=== PATIENT | male | born 1940 | race Caucasian/White ===

== ENCOUNTER 2021-05-12 23:32 | Inpatient (IN) | payer OTHER, MEDICARE ==
[2021-05-13 00:06] VITALS: BMI 22.3
[2021-05-13] MEDS ORDERED: SODIUM CHLORIDE 0.9% 500 ML INFUS.BAG IV ONE (01:01)
[2021-05-13 03:31] LABS: BASO % 0.9 % (0-2.0); EOS % 2.4 % (0-4.5); HEMATOCRIT 34.2 % (35.4-49); HEMOGLOBIN 11.2 GM/dL (11.7-16.9); LYMPH % 19.9 % (8-40); MCH 30.3 pg (25.7-33.7); MCHC 32.7 g/dl (32.0-35.9); MEAN CELL VOLUME 92.7 fl (80-96); MEAN PLT VOLUME 8.7 fl (7.5-11.1); NEUT % 62.8 % (42.8-82.8); PLATELET COUNT 178 10^3/uL (134-434); RBC 3.69 M/mm3 (4.00-5.60); WHITE BLOOD COUNT 6.4 K/mm3 (4.0-10.0)
[2021-05-13 03:43] LABS: INR 1.75 (0.83-1.09); PROTHROMBIN TIME (PATIENT) 21.2 SEC (9.7-13.0)
[2021-05-13 03:45] LABS: ACTIVATED PTT 32.9 SECONDS (25.2-36.5)
[2021-05-13 03:49] LABS: CHLORIDE 107 mmol/L (98-107); SODIUM 142 mmol/L (136-145)
[2021-05-13 03:51] LABS: ANION GAP 13 MMOL/L (8-16); BLOOD UREA NITROGEN 37.3 mg/dL (7-18); CALCIUM 9.1 mg/dL (8.5-10.1); CO2 23 mmol/L (21-32)
[2021-05-13 03:52] LABS: GLUCOSE,RANDOM 79 mg/dL (74-106)
[2021-05-13 03:54] LABS: SGPT/ALT 38 U/L (13-61)
[2021-05-13 03:55] LABS: SGOT/AST 44 U/L (15-37)
[2021-05-13 03:56] LABS: BILIRUBIN,TOTAL 0.5 mg/dL (0.2-1); TOT PROT 6.3 g/dl (6.4-8.2)
[2021-05-13 03:57] LABS: ALK PHOS 100 U/L (45-117)
[2021-05-13 08:55] LABS: BASO % 0.9 % (0-2.0); HEMATOCRIT 33.3 % (35.4-49); HEMOGLOBIN 10.7 GM/dL (11.7-16.9); LYMPH % 24.1 % (8-40); MCHC 32.1 g/dl (32.0-35.9); MEAN CELL VOLUME 93.3 fl (80-96); MEAN PLT VOLUME 7.8 fl (7.5-11.1); MONO % 17.7 % (3.8-10.2); NEUT % 54.3 % (42.8-82.8); PLATELET COUNT 161 10^3/uL (134-434); RBC 3.57 M/mm3 (4.00-5.60); RDW 19.5 % (11.9-15.9); WHITE BLOOD COUNT 5.1 K/mm3 (4.0-10.0)
[2021-05-13] MEDS ORDERED: LACTATED RINGERS SOLUTION 1,000 ML/1,000 ML INFUS.BAG IV SCH (09:00)
[2021-05-13 09:22] LABS: ALBUMIN 2.7 g/dl (3.4-5.0); BLOOD UREA NITROGEN 31.9 mg/dL (7-18); CALCIUM 8.9 mg/dL (8.5-10.1)
[2021-05-13 09:25] LABS: CREATININE 1.6 mg/dL (0.55-1.3)
[2021-05-13 09:27] LABS: BILIRUBIN,TOTAL 0.5 mg/dL (0.2-1); TOT PROT 5.9 g/dl (6.4-8.2)
[2021-05-13] MEDS ORDERED: PT OWN MED DRAWER 7, Y5N ONE (10:15)
[2021-05-13] MEDS ORDERED: ACETAMINOPHEN 325 MG TABLET (FP) PO PRN (10:18)
[2021-05-13] MEDS ORDERED: DEXTROSE 50%-WATER - 25 GM/50 ML VIAL IVPUSH ONE (10:26)
[2021-05-13 10:53] LABS: RETICULOCYTES 1.11 % (0.5-1.5)
[2021-05-13] MEDS: LEVOTHYROXINE NA 125 MCG TABLET (FP) PO SCH (11:25)
[2021-05-13] MEDS ORDERED: DEXTROSE 50%-WATER 25 GM/50 ML DISP.SYRIN ONE (11:26)
[2021-05-13] MEDS: DEXTROSE 5%-0.45% SALINE 1,000 ML IV SCH (22:07)
[2021-05-13] MEDS: ATORVASTATIN CA 10 MG TABLET (FP) PO SCH (22:07)
[2021-05-13 23:08] LABS: EPI CELLS 7 /uL (0-25.1); HYALINE CASTS 1 /uL (0-3.1); URINE APPEARANCE CLEAR; URINE BACTERIA 9 /uL (0-1359); URINE BILIRUBIN NEGATIVE (NEGATIVE); URINE COLOR YELLOW; URINE GLUCOSE (UA) NEGATIVE (NEGATIVE); URINE KETONE NEGATIVE (NEGATIVE); URINE LEUK ESTERASE 1+ (NEGATIVE); URINE NITRITE NEGATIVE (NEGATIVE); URINE PROTEIN NEGATIVE (NEGATIVE); URINE RBC 14 /uL (0-23.9); URINE UROBILINOGEN 0.2 mg/dL (0.2-1.0); URINE WBC 50 /uL (0-25.8)
[2021-05-14] MEDS: LEVOTHYROXINE NA 125 MCG TABLET (FP) PO SCH (06:16)
[2021-05-14 07:33] LABS: BASO % 0.8 % (0-2.0); EOS % 2.6 % (0-4.5); HEMATOCRIT 34.4 % (35.4-49); HEMOGLOBIN 11.1 GM/dL (11.7-16.9); MCH 30.1 pg (25.7-33.7); MCHC 32.3 g/dl (32.0-35.9); MEAN CELL VOLUME 93.2 fl (80-96); MEAN PLT VOLUME 8.5 fl (7.5-11.1); MONO % 17.1 % (3.8-10.2); NEUT % 66.5 % (42.8-82.8); PLATELET COUNT 164 10^3/uL (134-434); RDW 19.1 % (11.9-15.9); WHITE BLOOD COUNT 6.6 K/mm3 (4.0-10.0)
[2021-05-14 07:50] LABS: ALBUMIN 2.7 g/dl (3.4-5.0); BLOOD UREA NITROGEN 20.9 mg/dL (7-18)
[2021-05-14 07:52] LABS: CALCIUM 8.9 mg/dL (8.5-10.1)
[2021-05-14 07:55] LABS: BILIRUBIN,TOTAL 0.9 mg/dL (0.2-1); TOT PROT 5.6 g/dl (6.4-8.2)
[2021-05-14] MEDS ORDERED: PT OWN MED DRAWER 7, Y5N ONE (09:59)
[2021-05-14] MEDS ORDERED: LEVOTHYROXINE NA 125 MCG TABLET (FP) PO SCH (10:00)
[2021-05-14] MEDS ORDERED: APIXABAN 5 MG TABLET PO SCH ×2 (10:00→12:15)
[2021-05-14] MEDS: DEXTROSE 5%-0.45% SALINE 1,000 ML IV SCH (17:50)
[2021-05-14] MEDS: ATORVASTATIN CA 10 MG TABLET (FP) PO SCH (21:57)
[2021-05-14] MEDS: APIXABAN 5 MG TABLET PO SCH (21:57)
[2021-05-15] MEDS: LEVOTHYROXINE NA 125 MCG TABLET (FP) PO SCH (06:22)
[2021-05-15 07:36] LABS: HEMATOCRIT 36.5 % (35.4-49); HEMOGLOBIN 11.5 GM/dL (11.7-16.9); MCH 29.8 pg (25.7-33.7); MCHC 31.5 g/dl (32.0-35.9); MEAN CELL VOLUME 94.5 fl (80-96); MEAN PLT VOLUME 8.9 fl (7.5-11.1); PLATELET COUNT 157 10^3/uL (134-434); RBC 3.86 M/mm3 (4.00-5.60); RDW 19.2 % (11.9-15.9); WHITE BLOOD COUNT 6.3 K/mm3 (4.0-10.0)
[2021-05-15 08:00] LABS: CALCIUM 8.6 mg/dL (8.5-10.1)
[2021-05-15 08:01] LABS: ALBUMIN 2.6 g/dl (3.4-5.0); MAGNESIUM 1.4 mg/dL (1.8-2.4)
[2021-05-15 08:04] LABS: PHOSPHOROUS 2.3 mg/dL (2.5-4.9)
[2021-05-15 08:05] LABS: BILIRUBIN,TOTAL 0.9 mg/dL (0.2-1); TOT PROT 5.7 g/dl (6.4-8.2)
[2021-05-15] MEDS ORDERED: LEVOTHYROXINE NA 112 MCG TABLET (FP) PO SCH (09:17)
[2021-05-15] MEDS ORDERED: COLCHICINE 0.6 MG CAP PO SCH (10:00)
[2021-05-15] MEDS: CARVEDILOL 6.25 MG TABLET (FP) PO SCH ×3 (10:24→21:45)
[2021-05-15] MEDS: APIXABAN 5 MG TABLET PO SCH ×2 (10:24→21:44)
[2021-05-15] MEDS: FUROSEMIDE 40 MG TABLET (FP) PO SCH (12:12)
[2021-05-15] MEDS: ALBUTEROL SO4 2.5/IPRATROPIUM 0.5 INH SOL 3 ML VIAL.NEB. NEB SCH ×2 (13:27→20:16)
[2021-05-15] MEDS: FLUTICASONE/UMECLIDIN/VILANTER (TRELEGY ELLIPTA 100-62.5-25) INAHLER IH SCH (17:23)
[2021-05-15] MEDS: ATORVASTATIN CA 10 MG TABLET (FP) PO SCH (21:44)
[2021-05-15] MEDS: LISINOPRIL 5 MG TABLET PO SCH (21:45)
[2021-05-16] MEDS: ALBUTEROL SO4 2.5/IPRATROPIUM 0.5 INH SOL 3 ML VIAL.NEB. NEB SCH (08:11)
[2021-05-16] MEDS ORDERED: PT OWN MED DRAWER 7, Y5N ONE ×2 (09:11→09:22)
[2021-05-16] MEDS: LISINOPRIL 5 MG TABLET PO SCH (09:23)
[2021-05-16] MEDS: CARVEDILOL 6.25 MG TABLET (FP) PO SCH (09:23)
[2021-05-16] MEDS: FUROSEMIDE 40 MG TABLET (FP) PO SCH (09:23)
[2021-05-16] MEDS: FLUTICASONE/UMECLIDIN/VILANTER (TRELEGY ELLIPTA 100-62.5-25) INAHLER IH SCH (09:23)
[2021-05-16] MEDS: APIXABAN 5 MG TABLET PO SCH (09:23)
[2021-05-16] MEDS ORDERED: ISOSORBIDE MONONITRATE 30 MG TAB.SR.24H (FP) PO SCH (11:00)
[2021-05-16] MEDS ORDERED: ASPIRIN 81 MG CHEWABLE TABLETS PO SCH (11:00)
[2021-05-16] MEDS ORDERED: NAPH,MB-DB/K PH,MBDB POWDER PACKET PO ONE (11:42)
[2021-05-16] MEDS ORDERED: MAGNESIUM OXIDE 400 MG TABLET (FP) PO ONE (12:15)
[2021-05-16 14:07] VITALS: BP 114/69; PULSE 75; TEMP 98.3
== END 2021-05-16 14:15 | disposition home or self-care (01) | DRG 394 ==
LOC: JER 23:32 → JERBED 05-13 05:22 → J4S 05-13 20:13
PROVIDERS: ATTEND Student in an Organized Health Care Education/Training Program
DX: K52.1 Toxic gastroenteritis and colitis (principal); I50.32 Chronic diastolic (congestive) heart failure; N17.9 Acute kidney failure, unspecified; I13.0 Hypertensive heart and chronic kidney disease with heart failure and stage 1 through stage 4 chronic kidney disease, or unspecified chronic kidney disease; I25.10 Atherosclerotic heart disease of native coronary artery without angina pectoris; Z95.1 Presence of aortocoronary bypass graft; E78.5 Hyperlipidemia, unspecified; J44.9 Chronic obstructive pulmonary disease, unspecified; E86.0 Dehydration; D64.9 Anemia, unspecified; N18.9 Chronic kidney disease, unspecified; E03.9 Hypothyroidism, unspecified; Z95.0 Presence of cardiac pacemaker; E86.9 Volume depletion, unspecified; M10.9 Gout, unspecified; T42.6X5A Adverse effect of other antiepileptic and sedative-hypnotic drugs, initial encounter
CPT/HCPCS: 36415; 70450-TC; 71045-TC-FY; 74176-TC; 80053; 81003; 82272; 82550; 82728; 83010; 83540; 83550; 83735; 83993; 84100; 84439; 84443; 84484; 85025; 85027; 85045; 85610; 85730; 86850; 86900; 86901; 87045; 87046; 87086; 87324; 87449; 93005; 93010; 93306-TC; 93880-TC; 94640; 97116-GP; 97161-GP; 99285-25; C9803; Q9967; U0003; U0005

== ENCOUNTER 2022-04-27 06:54 | Day surgery (SDC) | payer OTHER, MEDICARE ==
[2022-04-22 13:04] VITALS: BMI 26.6
[2022-04-27] MEDS ORDERED: TETRACAINE 0.5% OPHTH SOLN 2 ML BOTTLE ONE (07:10)
[2022-04-27] MEDS ORDERED: BSS (NA/CA/MG/K) BALANCED SALT SOLUTION OPHTH SOLN 15 ML BOTTLE ONE (07:10)
[2022-04-27] MEDS ORDERED: EPINEPHrine/PF 1 MG/1 ML (1:1,000) AMPULE ONE (07:10)
[2022-04-27] MEDS ORDERED: PHENYLEPHRINE/KETOROLAC 4 ML VIAL IO ONE (07:10)
[2022-04-27] MEDS ORDERED: LIDOCAINE HCL/PF 1% SDV 5ML VIAL ONE (07:10)
[2022-04-27] MEDS ORDERED: ACETYLCHOLINE 1:100 INTRA-OCUL 20 MG/2 ML KIT ONE (07:11)
[2022-04-27] MEDS ORDERED: NEO/POLYMYX B SULF/DEXAMETH OPHTHALMIC 5ML BOTTLE ONE (07:11)
[2022-04-27] MEDS ORDERED: CARBACHOL 0.01% INTRA-OCULAR 1.5 ML VIAL ONE (07:11)
[2022-04-27] MEDS ORDERED: PHENYLEPHRINE 2.5% OPHTH SOLN 15 ML BOTTLE ONE (07:15)
[2022-04-27] MEDS ORDERED: TROPICAMIDE 1% OPHTH SOLN 15 ML BOTTLE ONE (07:15)
[2022-04-27] MEDS ORDERED: CIPROFLOXACIN 0.3% EYE DROPS 5 ML BOTTLE ONE (07:15)
[2022-04-27] MEDS ORDERED: CYCLOPENTOLATE 2% OPHTH SOLN 2 ML BOTTLE ONE (07:15)
[2022-04-27] MEDS ORDERED: PHENYLEPHRINE 2.5% OPHTH SOLN 15 ML BOTTLE OD ONE ×3 (07:20→07:30)
[2022-04-27] MEDS ORDERED: TROPICAMIDE 1% OPHTH SOLN 15 ML BOTTLE OD ONE ×3 (07:20→07:30)
[2022-04-27] MEDS ORDERED: CYCLOPENTOLATE 2% OPHTH SOLN 2 ML BOTTLE OD ONE ×3 (07:20→07:30)
[2022-04-27] MEDS ORDERED: CIPROFLOXACIN 0.3% EYE DROPS 5 ML BOTTLE OD ONE ×3 (07:20→07:30)
[2022-04-27] MEDS ORDERED: MIDAZOLAM HCL 2 MG/2 ML SINGLE DOSE VIAL ONE (08:36)
[2022-04-27 09:22] VITALS: TEMP 97.6
[2022-04-27 09:45] VITALS: BP 124/77; PULSE 64
== END 2022-04-27 09:40 | disposition home or self-care (01) ==
LOC: FASU 06:54
PROVIDERS: ATTEND Ophthalmology
PROC: 08RJ3JZ Replacement of Right Lens with Synthetic Substitute, Percutaneous Approach (ICD-10-PCS; principal; 2022-04-27 08:41)
DX: H26.8 Other specified cataract (principal)
CPT/HCPCS: 66984; V2632; J1097

== ENCOUNTER 2022-05-11 06:40 | Day surgery (SDC) | payer OTHER, MEDICARE ==
[2022-05-06 07:55] VITALS: BMI 26.6
[2022-05-11] MEDS ORDERED: EPINEPHrine/PF 1 MG/1 ML (1:1,000) AMPULE ONE (07:10)
[2022-05-11] MEDS ORDERED: TETRACAINE 0.5% OPHTH SOLN 2 ML BOTTLE ONE (07:10)
[2022-05-11] MEDS ORDERED: LIDOCAINE HCL/PF 1% SDV 5ML VIAL ONE (07:10)
[2022-05-11] MEDS ORDERED: PHENYLEPHRINE/KETOROLAC 4 ML VIAL IO ONE (07:10)
[2022-05-11] MEDS ORDERED: TRYPAN BLUE 0.5 ML DISP.SYRIN ONE (07:10)
[2022-05-11] MEDS ORDERED: BSS (NA/CA/MG/K) BALANCED SALT SOLUTION OPHTH SOLN 15 ML BOTTLE ONE (07:10)
[2022-05-11] MEDS ORDERED: CARBACHOL 0.01% INTRA-OCULAR 1.5 ML VIAL ONE (07:11)
[2022-05-11] MEDS ORDERED: NEO/POLYMYX B SULF/DEXAMETH OPHTHALMIC 5ML BOTTLE ONE (07:11)
[2022-05-11] MEDS ORDERED: ACETYLCHOLINE 1:100 INTRA-OCUL 20 MG/2 ML KIT ONE (07:11)
[2022-05-11] MEDS ORDERED: TROPICAMIDE 1% OPHTH SOLN 15 ML BOTTLE OS ONE ×3 (07:15→07:25)
[2022-05-11] MEDS: PHENYLEPHRINE 2.5% OPHTH SOLN 15 ML BOTTLE ONE ×3 (07:15→07:25)
[2022-05-11] MEDS: CYCLOPENTOLATE 2% OPHTH SOLN 2 ML BOTTLE ONE ×3 (07:15→07:25)
[2022-05-11] MEDS: CIPROFLOXACIN 0.3% EYE DROPS 5 ML BOTTLE ONE ×3 (07:15→07:25)
[2022-05-11] MEDS ORDERED: MIDAZOLAM HCL 2 MG/2 ML SINGLE DOSE VIAL ONE (07:46)
[2022-05-11 08:52] VITALS: TEMP 97.6
[2022-05-11 08:53] VITALS: BP 122/70
[2022-05-11 09:02] VITALS: PULSE 68
== END 2022-05-11 09:02 | disposition home or self-care (01) ==
LOC: FASU 06:40
PROVIDERS: ATTEND Ophthalmology
PROC: 08RK3JZ Replacement of Left Lens with Synthetic Substitute, Percutaneous Approach (ICD-10-PCS; principal; 2022-05-11 08:05)
DX: H26.8 Other specified cataract (principal)
CPT/HCPCS: 66984; V2632; J1097

== ENCOUNTER 2023-03-15 13:42 | Inpatient (IN) | payer OTHER, MEDICARE ==
[2023-03-15 15:05] LABS: HEMATOCRIT 33.9 % (35.4-49); HEMOGLOBIN 10.9 G/dL (11.7-16.9); MCH 33.6 pg (25.7-33.7); MCHC 32.2 g/dl (32.0-35.9); MEAN CELL VOLUME 104.5 fl (80-96); MEAN PLT VOLUME 8.8 fl (7.5-11.1); PLATELET COUNT 117.6 10^3/uL (134-434); RBC 3.24 10^6/uL (4.00-5.60); WHITE BLOOD COUNT 7.4 10^3/uL (4.0-10.8)
[2023-03-15 15:11] LABS: BILIRUBIN,TOTAL 0.8 mg/dl (0.2-1); CALCIUM 8.9 mg/dl (8.5-10); CREATININE 1.7 mg/dl (0.55-1.3); POTASSIUM 4.1 mmol/L (3.5-5.1)
[2023-03-15] MEDS ORDERED: SODIUM CHLORIDE 0.9% 1000 ML INFUS.BAG IV ONE (15:25)
[2023-03-15 15:39] LABS: PLATELET ESTIMATE DECREASED
[2023-03-15 18:07] VITALS: BMI 31.6
[2023-03-15] MEDS: APIXABAN 2.5 MG TABLET PO SCH (21:22)
[2023-03-15] MEDS: ATORVASTATIN CA 10 MG TABLET (FP) PO SCH (21:22)
[2023-03-15] MEDS ORDERED: FUROSEMIDE 40 MG/4 ML INJECTABLE VIAL IVPUSH ONE (22:46)
[2023-03-16] MEDS: LEVOTHYROXINE NA 112 MCG TABLET (FP) PO SCH (06:11)
[2023-03-16 08:41] LABS: ALBUMIN 2.9 g/dl (3.4-5.0); BILIRUBIN,DIRECT 0.6 mg/dL (0.0-0.2); BILIRUBIN,TOTAL 1.4 mg/dl (0.2-1); CALCIUM 8.6 mg/dl (8.5-10); CREATININE 1.4 mg/dl (0.55-1.3); POTASSIUM 4.2 mmol/L (3.5-5.1); TOT PROT 5.7 g/dl (6.4-8.2)
[2023-03-16] MEDS: APIXABAN 2.5 MG TABLET PO SCH ×2 (09:25→22:07)
[2023-03-16] MEDS: metoPROLOL SUCCINATE 25 MG TAB.SR.24H (FP) PO SCH (09:25)
[2023-03-16] MEDS: PREGABALIN 25 MG CAPSULE PO SCH (09:25)
[2023-03-16] MEDS: ALLOPURINOL 100 MG TABLET (FP) PO SCH (09:25)
[2023-03-16] MEDS: ISOSORBIDE MONONITRATE 30 MG TAB.SR.24H (FP) PO SCH (09:26)
[2023-03-16] MEDS: FLUTICASONE/UMECLIDIN/VILANTER(100-62.5-25 TRELEGY ELLIPTA) INAHLER IH SCH (09:40)
[2023-03-16 11:09] LABS: BASO % 0.8 % (0-2.0); EOS % 1.5 % (0-4.5); HEMOGLOBIN 10.9 GM/dL (11.7-16.9); LYMPH % 13.9 % (8-40); MCH 33.8 pg (25.7-33.7); MCHC 34.2 g/dl (32.0-35.9); MEAN PLT VOLUME 9.2 fl (7.5-11.1); MONO % 16.1 % (3.8-10.2); NEUT % 67.7 % (42.8-82.8); PLATELET COUNT 127 10^3/uL (134-434); RBC 3.23 M/mm3 (4.00-5.60); RDW 18.4 % (11.9-15.9); WHITE BLOOD COUNT 7.6 K/mm3 (4.0-10.0)
[2023-03-16 11:28] LABS: N-TERMINAL BNP 856.5 pg/ml (5-450)
[2023-03-16] MEDS: ATORVASTATIN CA 10 MG TABLET (FP) PO SCH (22:07)
[2023-03-17 02:08] VITALS: RESP 18
[2023-03-17] MEDS: LEVOTHYROXINE NA 112 MCG TABLET (FP) PO SCH (06:47)
[2023-03-17 07:43] LABS: ALBUMIN 2.8 g/dl (3.4-5.0); BILIRUBIN,TOTAL 1.6 mg/dl (0.2-1); CALCIUM 8.7 mg/dl (8.5-10); CREATININE 1.2 mg/dl (0.55-1.3); TOT PROT 5.7 g/dl (6.4-8.2)
[2023-03-17 09:05] VITALS: BP 136/70; PULSE 69; TEMP 99.9
[2023-03-17] MEDS: ALLOPURINOL 100 MG TABLET (FP) PO SCH (09:22)
[2023-03-17] MEDS: PREGABALIN 25 MG CAPSULE PO SCH (09:22)
[2023-03-17] MEDS: APIXABAN 2.5 MG TABLET PO SCH (09:22)
[2023-03-17] MEDS: FLUTICASONE/UMECLIDIN/VILANTER(100-62.5-25 TRELEGY ELLIPTA) INAHLER IH SCH (09:22)
[2023-03-17] MEDS: ISOSORBIDE MONONITRATE 30 MG TAB.SR.24H (FP) PO SCH (09:22)
[2023-03-17] MEDS: metoPROLOL SUCCINATE 25 MG TAB.SR.24H (FP) PO SCH (09:22)
[2023-03-17 10:23] LABS: HEMATOCRIT 32.2 % (35.4-49); HEMOGLOBIN 10.9 GM/dL (11.7-16.9); MCH 33.6 pg (25.7-33.7); MCHC 33.9 g/dl (32.0-35.9); MEAN CELL VOLUME 99.4 fl (80-96); MEAN PLT VOLUME 8.8 fl (7.5-11.1); PLATELET COUNT 127 10^3/uL (134-434); RBC 3.24 M/mm3 (4.00-5.60); RDW 18.7 % (11.9-15.9); WHITE BLOOD COUNT 8.2 K/mm3 (4.0-10.0)
[2023-03-17 10:35] LABS: LYMPH % 9.4 % (8-40); MONO % 15.1 % (3.8-10.2); NEUT % 73.2 % (42.8-82.8)
[2023-03-17 10:36] LABS: BASO % 0.7 % (0-2.0); EOS % 1.6 % (0-4.5)
[2023-03-20 15:07] LABS: TOTAL PROTEIN, URINE 11.4 mg/dL (Not Estab.)
== END 2023-03-17 14:01 | disposition home or self-care (01) | DRG 194 ==
LOC: FER 13:42 → FM/S 15:30 → OBSVTOIN 03-16 17:19 → FM/S 03-17 06:59
PROVIDERS: ADMIT Internal Medicine
DX: I13.0 Hypertensive heart and chronic kidney disease with heart failure and stage 1 through stage 4 chronic kidney disease, or unspecified chronic kidney disease (principal); I50.32 Chronic diastolic (congestive) heart failure; J90 Pleural effusion, not elsewhere classified; E78.5 Hyperlipidemia, unspecified; I48.91 Unspecified atrial fibrillation; I25.10 Atherosclerotic heart disease of native coronary artery without angina pectoris; R74.01 Elevation of levels of liver transaminase levels; N18.9 Chronic kidney disease, unspecified; Z95.1 Presence of aortocoronary bypass graft; Z95.5 Presence of coronary angioplasty implant and graft
CPT/HCPCS: 0241U-QW; 36415; 70450-TC; 71045-TC-FY; 72125-TC; 80053; 80076; 81003; 81015; 83880; 84155; 84156; 84157; 84165; 84443; 84484; 85025; 85027; 85730; 86140; 86850; 86900; 86901; 93005; 93306-TC; 97116-GP; 97161-GP; 99285-25; G0378

== ENCOUNTER 2023-03-23 15:51 | Observation (INO) | payer OTHER, MEDICARE ==
[2023-03-23 16:41] VITALS: BMI 30.9
[2023-03-23 19:02] LABS: EOS % 0.9 % (0-4.5); HEMATOCRIT 40.1 % (35.4-49); LYMPH % 8.9 % (8-40); MCH 32.6 pg (25.7-33.7); MCHC 32.3 g/dl (32.0-35.9); MEAN CELL VOLUME 100.8 fl (80-96); MEAN PLT VOLUME 8.1 fl (7.5-11.1); MONO % 11.2 % (3.8-10.2); PLATELET COUNT 227 10^3/uL (134-434); RBC 3.98 M/mm3 (4.00-5.60); RDW 18.1 % (11.9-15.9); WHITE BLOOD COUNT 6.7 K/mm3 (4.0-10.0)
[2023-03-23 19:13] LABS: INR 1.1 (0.83-1.09); PROTHROMBIN TIME (PATIENT) 12.7 SEC (9.7-13.0)
[2023-03-23 19:16] LABS: ACTIVATED PTT 34.9 SECONDS (25.2-36.5)
[2023-03-23 19:23] LABS: POTASSIUM 4.6 mmol/L (3.5-5.1)
[2023-03-23 19:25] LABS: ALBUMIN 3.3 g/dl (3.4-5.0); BLOOD UREA NITROGEN 29.7 mg/dL (7-18); CALCIUM 9.7 mg/dL (8.5-10.1); MAGNESIUM 1.8 mg/dL (1.8-2.4)
[2023-03-23 19:29] LABS: CREATININE 1.3 mg/dL (0.55-1.3)
[2023-03-23 19:30] LABS: BILIRUBIN,TOTAL 0.6 mg/dL (0.2-1); TOT PROT 7.2 g/dl (6.4-8.2)
[2023-03-23 22:07] LABS: EPI CELLS 7 /uL (0-25.1); HYALINE CASTS 1 /uL (0-3.1); URINE APPEARANCE CLEAR; URINE BACTERIA 1 /uL (0-1359); URINE BILIRUBIN NEGATIVE (NEGATIVE); URINE COLOR YELLOW; URINE GLUCOSE (UA) NEGATIVE (NEGATIVE); URINE KETONE NEGATIVE (NEGATIVE); URINE LEUK ESTERASE TRACE (NEGATIVE); URINE NITRITE NEGATIVE (NEGATIVE); URINE PROTEIN NEGATIVE (NEGATIVE); URINE RBC 4 /uL (0-23.9); URINE UROBILINOGEN 0.2 mg/dL (0.2-1.0); URINE WBC 20 /uL (0-25.8)
[2023-03-23] MEDS ORDERED: APIXABAN 5 MG TABLET ONE (22:54)
[2023-03-23] MEDS: APIXABAN 5 MG TABLET PO SCH (22:58)
[2023-03-23] MEDS ORDERED: MELATONIN 5 MG TABLETS PO PRN (23:57)
[2023-03-23] MEDS ORDERED: ACETAMINOPHEN 325 MG TABLET (FP) PO PRN (23:57)
[2023-03-24] MEDS: LEVOTHYROXINE NA 112 MCG TABLET (FP) PO SCH (07:07)
[2023-03-24 07:48] LABS: HEMATOCRIT 37.8 % (35.4-49); HEMOGLOBIN 12.7 GM/dL (11.7-16.9); MCH 33.9 pg (25.7-33.7); MCHC 33.7 g/dl (32.0-35.9); MEAN CELL VOLUME 100.5 fl (80-96); MEAN PLT VOLUME 8.9 fl (7.5-11.1); PLATELET COUNT 230 10^3/uL (134-434); RBC 3.76 M/mm3 (4.00-5.60); RDW 17.6 % (11.9-15.9); WHITE BLOOD COUNT 8.6 K/mm3 (4.0-10.0)
[2023-03-24 08:24] LABS: POTASSIUM 4.8 mmol/L (3.5-5.1)
[2023-03-24 08:27] LABS: ALBUMIN 3.1 g/dl (3.4-5.0)
[2023-03-24 08:28] LABS: BLOOD UREA NITROGEN 27.3 mg/dL (7-18)
[2023-03-24 08:30] LABS: CREATININE 1.2 mg/dL (0.55-1.3); MAGNESIUM 1.5 mg/dL (1.8-2.4)
[2023-03-24 08:31] LABS: PHOSPHOROUS 3.1 mg/dL (2.5-4.9)
[2023-03-24 08:32] LABS: BILIRUBIN,TOTAL 1.1 mg/dL (0.2-1); TOT PROT 6.7 g/dl (6.4-8.2)
[2023-03-24] MEDS: metoPROLOL SUCCINATE 25 MG TAB.SR.24H (FP) PO SCH (10:19)
[2023-03-24] MEDS: PREGABALIN 75 MG CAPSULE PO SCH (10:19)
[2023-03-24] MEDS: FUROSEMIDE 40 MG TABLET (FP) PO SCH (10:19)
[2023-03-24] MEDS: APIXABAN 5 MG TABLET PO SCH ×2 (10:19→21:58)
[2023-03-24] MEDS: ISOSORBIDE MONONITRATE 30 MG TAB.SR.24H (FP) PO SCH (10:19)
[2023-03-24] MEDS: ALLOPURINOL 100 MG TABLET (FP) PO SCH (10:19)
[2023-03-24] MEDS: LISINOPRIL 10 MG TABLET PO SCH (10:19)
[2023-03-24] MEDS ORDERED: AMPICILLIN NA/SULBACTAM NA 1.5 GM in SODIUM CHLORIDE 100 ML IVPB SCH (12:15)
[2023-03-24] MEDS: AMPICILLIN NA/SULBACTAM NA 3 GM in SODIUM CHLORIDE 100 ML IVPB SCH ×2 (14:10→21:57)
[2023-03-24] MEDS: FLUTICASONE/UMECLIDIN/VILANTER(100-62.5-25 TRELEGY ELLIPTA) INAHLER IH SCH (14:11)
[2023-03-24] MEDS ORDERED: ATORVASTATIN CA 10 MG TABLET (FP) PO SCH (22:00)
[2023-03-25] MEDS: AMPICILLIN NA/SULBACTAM NA 3 GM in SODIUM CHLORIDE 100 ML IVPB SCH ×3 (02:59→14:28)
[2023-03-25] MEDS: LEVOTHYROXINE NA 112 MCG TABLET (FP) PO SCH (06:08)
[2023-03-25] MEDS ORDERED: AMPICILLIN NA/SULBACTAM NA 1.5 GM VIAL ONE (09:10)
[2023-03-25] MEDS: ISOSORBIDE MONONITRATE 30 MG TAB.SR.24H (FP) PO SCH (09:14)
[2023-03-25] MEDS: FUROSEMIDE 40 MG TABLET (FP) PO SCH (09:14)
[2023-03-25] MEDS: APIXABAN 5 MG TABLET PO SCH (09:14)
[2023-03-25] MEDS: PREGABALIN 75 MG CAPSULE PO SCH (09:15)
[2023-03-25] MEDS: ALLOPURINOL 100 MG TABLET (FP) PO SCH (09:15)
[2023-03-25] MEDS: LISINOPRIL 10 MG TABLET PO SCH (09:15)
[2023-03-25] MEDS: metoPROLOL SUCCINATE 25 MG TAB.SR.24H (FP) PO SCH (09:16)
[2023-03-25] MEDS: FLUTICASONE/UMECLIDIN/VILANTER(100-62.5-25 TRELEGY ELLIPTA) INAHLER IH SCH (09:17)
[2023-03-25 10:51] VITALS: RESP 20
[2023-03-25 14:42] VITALS: BP 126/65; PULSE 63; TEMP 98.3
== END 2023-03-25 16:49 | disposition home or self-care (01) ==
LOC: JER 15:51 → JERBED 19:56 → J7W 03-24 05:35
PROVIDERS: ADMIT Internal Medicine; ATTEND Internal Medicine
DX: R53.1 Weakness (principal); R26.2 Difficulty in walking, not elsewhere classified; Z95.1 Presence of aortocoronary bypass graft; I11.0 Hypertensive heart disease with heart failure; I50.9 Heart failure, unspecified; J44.9 Chronic obstructive pulmonary disease, unspecified; D75.89 Other specified diseases of blood and blood-forming organs; E78.5 Hyperlipidemia, unspecified; I48.91 Unspecified atrial fibrillation; Z79.01 Long term (current) use of anticoagulants; Z95.0 Presence of cardiac pacemaker; Z91.018 Allergy to other foods
CPT/HCPCS: 0241U-QW; 36415; 70450-TC; 71045-TC-FY; 76705-TC; 80053; 81003; 82550; 82962; 83735; 84100; 84436; 84439; 84443; 84484; 85025; 85027; 85610; 85730; 86704; 86803; 87040; 87086; 87340; 87517; 93005; 93010; 96365; 97116-GP; 97161-GP; 99285-25; G0378

== ENCOUNTER 2023-12-13 17:22 | Emergency (ER) | payer OTHER, MEDICARE ==
[2023-12-13 17:30] VITALS: BP 147/86; PULSE 65; RESP 16; TEMP 97.9; BMI 32.5
[2023-12-13 18:09] LABS: HEMOGLOBIN 12.3 G/dL (11.7-16.9); MCH 33.4 pg (25.7-33.7); MCHC 32.4 g/dl (32.0-35.9); MEAN CELL VOLUME 102.9 fl (80-96); MEAN PLT VOLUME 8.7 fl (7.5-11.1); PLATELET COUNT 139.3 10^3/uL (134-434); RBC 3.69 10^6/uL (4.00-5.60); RDW 14.5 % (11.9-15.9); WHITE BLOOD COUNT 8.6 10^3/uL (4.0-10.8)
[2023-12-13 18:12] LABS: INR 1.13 (0.83-1.09); PROTHROMBIN TIME (PATIENT) 13.1 SEC (9.7-13.0)
[2023-12-13 18:14] LABS: ACTIVATED PTT 31.2 SECONDS (25.2-36.5)
[2023-12-13 18:22] LABS: ALBUMIN 3.7 g/dl (3.4-5.0); BILIRUBIN,TOTAL 1.4 mg/dl (0.2-1); CALCIUM 9.3 mg/dl (8.5-10.1); CREATININE 1.3 mg/dl (0.6-1.3); POTASSIUM 4.4 mmol/L (3.5-5.1); TOT PROT 6.4 g/dl (6.4-8.2)
[2023-12-13 19:40] LABS: PLATELET ESTIMATE ADEQUATE
== END 2023-12-13 18:49 | disposition home or self-care (01) ==
LOC: FER 17:22
DX: R04.0 Epistaxis (principal)
CPT/HCPCS: 36415; 80053; 85027; 85610; 85730; 99283-25

== ENCOUNTER 2024-02-02 15:33 | Inpatient (IN) | payer OTHER, MEDICARE ==
[2024-02-02] MEDS ORDERED: ALBUTEROL SO4 2.5/IPRATROPIUM 0.5 INH SOL 3 ML VIAL.NEB. NEB ONE (16:21)
[2024-02-02] MEDS: ALBUTEROL SO4 2.5/IPRATROPIUM 0.5 INH SOL 3 ML VIAL.NEB. NEB ONE (16:24)
[2024-02-02 16:32] LABS: VENOUS O2 SATURATION 25.2 % (70-80); VENOUS PCO2 53.9 mmHg (38-52); VENOUS PH 7.384 (7.310-7.410)
[2024-02-02 16:34] LABS: BASO % 0.4 % (0-2.0); EOS % 0.4 % (0-4.5); HEMATOCRIT 36.8 % (35.4-49); HEMOGLOBIN 11.8 GM/dL (11.7-16.9); LYMPH % 4.1 % (8-40); MCH 31.4 pg (25.7-33.7); MEAN CELL VOLUME 98.1 fl (80-96); MEAN PLT VOLUME 8.5 fl (7.5-11.1); MONO % 13.1 % (3.8-10.2); PLATELET COUNT 201 10^3/uL (134-434); RBC 3.75 M/mm3 (4.00-5.60); WHITE BLOOD COUNT 11.6 K/mm3 (4.0-10.0)
[2024-02-02 16:42] LABS: INR 1.77 (0.83-1.09); PROTHROMBIN TIME (PATIENT) 20.4 SEC (9.7-13.0)
[2024-02-02 16:45] LABS: ACTIVATED PTT 31.6 SECONDS (25.2-36.5)
[2024-02-02 16:52] LABS: POTASSIUM 4.4 mmol/L (3.5-5.1)
[2024-02-02 16:55] LABS: ALBUMIN 2.6 g/dl (3.4-5.0); BLOOD UREA NITROGEN 32.9 mg/dL (7-18); MAGNESIUM 1.3 mg/dL (1.8-2.4)
[2024-02-02 16:58] LABS: CREATININE 1.6 mg/dL (0.55-1.3)
[2024-02-02 16:59] LABS: TOT PROT 6.3 g/dl (6.4-8.2)
[2024-02-02 17:00] LABS: BILIRUBIN,TOTAL 1.6 mg/dL (0.2-1)
[2024-02-02 17:03] LABS: N-TERMINAL BNP 1681.4 pg/ml (5-450)
[2024-02-02] MEDS ORDERED: MAGNESIUM SULFATE IN WATER 2 GM/50 ML IVPB IVPB ONE (18:25)
[2024-02-02] MEDS ORDERED: FUROSEMIDE 40 MG/4 ML INJECTABLE VIAL ONE (18:26)
[2024-02-02] MEDS: FUROSEMIDE 40 MG/4 ML INJECTABLE VIAL IVPUSH ONE ×2 (18:37→18:44)
[2024-02-02] MEDS: MAGNESIUM SULFATE IN WATER 2 GM/50 ML IVPB IVPB ONE (18:37)
[2024-02-02] MEDS: HEPARIN NA (PORCINE) 5,000 UNITS/ML 1ML VIAL SQ SCH (22:50)
[2024-02-02 23:06] VITALS: BMI 29.5
[2024-02-03] MEDS: MAGNESIUM SULFATE IN WATER 2 GM/50 ML IVPB IVPB ONE (05:42)
[2024-02-03] MEDS: FUROSEMIDE 40 MG/4 ML INJECTABLE VIAL IVPUSH SCH (06:43)
[2024-02-03 06:56] LABS: BASO % 0.5 % (0-2.0); EOS % 3.5 % (0-4.5); HEMATOCRIT 35.7 % (35.4-49); HEMOGLOBIN 11.3 GM/dL (11.7-16.9); LYMPH % 10.1 % (8-40); MCH 31.4 pg (25.7-33.7); MCHC 31.6 g/dl (32.0-35.9); MEAN CELL VOLUME 99.4 fl (80-96); MEAN PLT VOLUME 8.9 fl (7.5-11.1); MONO % 14.9 % (3.8-10.2); PLATELET COUNT 182 10^3/uL (134-434); RBC 3.59 M/mm3 (4.00-5.60); RDW 17.5 % (11.9-15.9)
[2024-02-03 07:08] LABS: POTASSIUM 4.4 mmol/L (3.5-5.1)
[2024-02-03 07:10] LABS: CALCIUM 9.9 mg/dL (8.5-10.1)
[2024-02-03 07:11] LABS: ALBUMIN 2.4 g/dl (3.4-5.0); BLOOD UREA NITROGEN 31.9 mg/dL (7-18); MAGNESIUM 2.5 mg/dL (1.8-2.4)
[2024-02-03 07:14] LABS: CREATININE 1.4 mg/dL (0.55-1.3); PHOSPHOROUS 3.7 mg/dL (2.5-4.9)
[2024-02-03 07:15] LABS: BILIRUBIN,TOTAL 1.1 mg/dL (0.2-1)
[2024-02-03] MEDS: LEVOTHYROXINE NA 125 MCG TABLET (FP) PO SCH (09:57)
[2024-02-03] MEDS: ISOSORBIDE MONONITRATE 30 MG TAB.SR.24H (FP) PO SCH (09:57)
[2024-02-03] MEDS: APIXABAN 2.5 MG TABLET PO SCH (09:57)
[2024-02-04 08:32] LABS: BASO % 0.3 % (0-2.0); EOS % 1.8 % (0-4.5); HEMATOCRIT 38.2 % (35.4-49); HEMOGLOBIN 12.6 GM/dL (11.7-16.9); LYMPH % 9.5 % (8-40); MCH 32.1 pg (25.7-33.7); MCHC 32.9 g/dl (32.0-35.9); MEAN CELL VOLUME 97.5 fl (80-96); MEAN PLT VOLUME 8.7 fl (7.5-11.1); NEUT % 74.4 % (42.8-82.8); PLATELET COUNT 211 10^3/uL (134-434); RBC 3.92 M/mm3 (4.00-5.60); RDW 17.9 % (11.9-15.9); WHITE BLOOD COUNT 11.9 K/mm3 (4.0-10.0)
[2024-02-04 08:57] LABS: POTASSIUM 4.1 mmol/L (3.5-5.1)
[2024-02-04 09:10] LABS: ALBUMIN 2.6 g/dl (3.4-5.0); CALCIUM 9.5 mg/dL (8.5-10.1)
[2024-02-04 09:13] LABS: CREATININE 1.4 mg/dL (0.55-1.3)
[2024-02-04 09:15] LABS: BILIRUBIN,TOTAL 1.4 mg/dL (0.2-1); TOT PROT 6.6 g/dl (6.4-8.2)
[2024-02-04] MEDS: metoPROLOL SUCCINATE 25 MG TAB.SR.24H (FP) PO SCH (09:41)
[2024-02-04] MEDS: ASPIRIN COATED 81 MG TABLET.EC PO SCH (09:41)
[2024-02-04] MEDS: LISINOPRIL 10 MG TABLET PO SCH (09:41)
[2024-02-04] MEDS: FUROSEMIDE 40 MG/4 ML INJECTABLE VIAL IVPUSH SCH (13:38)
[2024-02-04] MEDS: ATORVASTATIN CA 20 MG TABLET (FP) PO SCH (21:34)
[2024-02-05 07:35] LABS: HEMATOCRIT 37.9 % (35.4-49); HEMOGLOBIN 12.3 GM/dL (11.7-16.9); MCH 31.8 pg (25.7-33.7); MCHC 32.4 g/dl (32.0-35.9); MEAN PLT VOLUME 8.5 fl (7.5-11.1); PLATELET COUNT 208 10^3/uL (134-434); RBC 3.86 M/mm3 (4.00-5.60); RDW 17.8 % (11.9-15.9); WHITE BLOOD COUNT 10.5 K/mm3 (4.0-10.0)
[2024-02-05] MEDS ORDERED: METOLAZONE 2.5 MG TABLET (FP) PO ONE (07:45)
[2024-02-05 07:53] LABS: POTASSIUM 3.7 mmol/L (3.5-5.1)
[2024-02-05 07:55] LABS: CALCIUM 9.6 mg/dL (8.5-10.1)
[2024-02-05 07:56] LABS: BLOOD UREA NITROGEN 31.4 mg/dL (7-18); MAGNESIUM 1.5 mg/dL (1.8-2.4)
[2024-02-05 07:58] LABS: CREATININE 1.3 mg/dL (0.55-1.3); PHOSPHOROUS 3.7 mg/dL (2.5-4.9)
[2024-02-05] MEDS ORDERED: MAGNESIUM 2GM/50ML STERILE WATER IVPB IVPB ONE (09:00)
[2024-02-05] MEDS: METOLAZONE 2.5 MG TABLET (FP) PO ONE (14:12)
[2024-02-05] MEDS: MAGNESIUM 2GM/50ML STERILE WATER IVPB IVPB ONE (14:58)
[2024-02-05] MEDS: MAGNESIUM OXIDE 400 MG TABLET (FP) PO ONE (15:58)
[2024-02-05] MEDS: ISOSORBIDE MONONITRATE 30 MG TAB.SR.24H (FP) PO SCH (21:27)
[2024-02-06 08:19] LABS: POTASSIUM 3.5 mmol/L (3.5-5.1)
[2024-02-06 08:22] LABS: HEMOGLOBIN 12.3 GM/dL (11.7-16.9); MCH 31.2 pg (25.7-33.7); MCHC 31.6 g/dl (32.0-35.9); MEAN CELL VOLUME 98.7 fl (80-96); MEAN PLT VOLUME 8.8 fl (7.5-11.1); PLATELET COUNT 231 10^3/uL (134-434); RBC 3.96 M/mm3 (4.00-5.60); RDW 17.6 % (11.9-15.9); WHITE BLOOD COUNT 10.6 K/mm3 (4.0-10.0)
[2024-02-06 08:27] LABS: CALCIUM 9.9 mg/dL (8.5-10.1)
[2024-02-06 08:29] LABS: ALBUMIN 2.6 g/dl (3.4-5.0); BLOOD UREA NITROGEN 36.4 mg/dL (7-18); MAGNESIUM 1.6 mg/dL (1.8-2.4)
[2024-02-06 08:31] LABS: CREATININE 1.5 mg/dL (0.55-1.3)
[2024-02-06 08:32] LABS: BILIRUBIN,TOTAL 1.5 mg/dL (0.2-1); PHOSPHOROUS 3.7 mg/dL (2.5-4.9); TOT PROT 6.4 g/dl (6.4-8.2)
[2024-02-06] MEDS ORDERED: LEVOTHYROXINE NA 125 MCG TABLET (FP) PO SCH (08:41)
[2024-02-06] MEDS: LEVOTHYROXINE NA 125 MCG TABLET (FP) PO SCH (09:38)
[2024-02-06] MEDS: MAGNESIUM SULF 50% (8.12 MEQ/2 ML-1 GM VIAL) IVPB SCH (09:38)
[2024-02-06] MEDS: MAGNESIUM OXIDE 400 MG TABLET (FP) PO ONE (11:57)
[2024-02-06] MEDS: MAGNESIUM SULF 50% (8.12 MEQ/2 ML-1 GM VIAL) IVPB ONE ×2 (12:04→12:45)
[2024-02-06] MEDS: FLUTICASONE/UMECLIDIN/VILANTER(100-62.5-25 TRELEGY ELLIPTA) INAHLER IH SCH (14:03)
[2024-02-07 07:13] LABS: BLOOD UREA NITROGEN 42.3 mg/dL (7-18); CALCIUM 10.1 mg/dL (8.5-10.1)
[2024-02-07 07:18] LABS: CREATININE 1.8 mg/dL (0.55-1.3)
[2024-02-07] MEDS: TAMSULOSIN HCL 0.4 MG CAP PO SCH (09:22)
[2024-02-07] MEDS: ALLOPURINOL 100 MG TABLET (FP) PO SCH (09:23)
[2024-02-07] MEDS: LISINOPRIL 10 MG TABLET PO SCH (10:00)
[2024-02-07] MEDS: metoPROLOL SUCCINATE 25 MG TAB.SR.24H (FP) PO SCH (10:00)
[2024-02-07] MEDS ORDERED: LUTEIN PO SCH (10:00)
[2024-02-07] MEDS ORDERED: ZEAXANTHIN PO SCH (10:00)
[2024-02-07] MEDS ORDERED: ASPIRIN 81 MG CHEWABLE TABLETS PO SCH (10:00)
[2024-02-07] MEDS ORDERED: [UNRECOGNIZED DRUG - OTHER] PO SCH (10:00)
[2024-02-07] MEDS: MAGNESIUM SULF 50% (8.12 MEQ/2 ML-1 GM VIAL) IVPB ONE (10:14)
[2024-02-07 10:46] VITALS: BP 82/46; PULSE 61; RESP 22; TEMP 98.1
== END 2024-02-07 15:12 | disposition home or self-care (01) | DRG 291 ==
LOC: JER 15:33 → JERBED 18:21 → J4W 21:24
PROVIDERS: ADMIT Student in an Organized Health Care Education/Training Program; ATTEND Internal Medicine
DX: I13.0 Hypertensive heart and chronic kidney disease with heart failure and stage 1 through stage 4 chronic kidney disease, or unspecified chronic kidney disease (principal); I50.33 Acute on chronic diastolic (congestive) heart failure; E03.9 Hypothyroidism, unspecified; E83.42 Hypomagnesemia; I48.91 Unspecified atrial fibrillation; I25.10 Atherosclerotic heart disease of native coronary artery without angina pectoris; E78.5 Hyperlipidemia, unspecified; N18.9 Chronic kidney disease, unspecified; J44.9 Chronic obstructive pulmonary disease, unspecified; E11.22 Type 2 diabetes mellitus with diabetic chronic kidney disease; R09.02 Hypoxemia; Z95.1 Presence of aortocoronary bypass graft
CPT/HCPCS: 0241U-QW; 36415; 71045-TC-FY; 71046-TC-FY; 80048; 80053; 80061; 82803; 83036; 83735; 83880; 84100; 84443; 84484; 85025; 85027; 85610; 85730; 93005; 93010; 93306-TC; 94010; 94761; 97116-GP; 97161-GP; 99285-25; J1644

== ENCOUNTER 2024-02-18 20:33 | Inpatient (IN) | payer OTHER, MEDICARE ==
[2024-02-18] MEDS: SODIUM CHLORIDE 0.9% 500 ML INFUS.BAG IV ONE (20:52)
[2024-02-18] MEDS ORDERED: morphine CARPU-JECT 4 MG/1 ML DISP.SYRIN IVPUSH ONE (20:55)
[2024-02-18] MEDS ORDERED: KETOROLAC TROMETHAMINE 30 MG/1 ML VIAL IVPUSH ONE (20:55)
[2024-02-18 21:03] LABS: HEMATOCRIT 43.9 % (35.4-49); HEMOGLOBIN 13.9 G/dL (11.7-16.9); MCHC 31.7 g/dl (32.0-35.9); MEAN CELL VOLUME 97.7 fl (80-96); MEAN PLT VOLUME 9.3 fl (7.5-11.1); PLATELET COUNT 224.7 10^3/uL (134-434); RBC 4.49 10^6/uL (4.00-5.60); RDW 16.6 % (11.9-15.9); WHITE BLOOD COUNT 13.2 10^3/uL (4.0-10.8)
[2024-02-18 21:31] LABS: ALBUMIN 3.5 g/dl (3.4-5.0); CALCIUM 10.8 mg/dl (8.5-10.1); CREATININE 3.5 mg/dl (0.6-1.3); MAGNESIUM 1.7 mg/dL (1.8-2.4); PHOSPHOROUS 4.1 (2.5-4.9); POTASSIUM 4.5 mmol/L (3.5-5.1); TOT PROT 6.7 g/dl (6.4-8.2)
[2024-02-18] MEDS ORDERED: ACETAMINOPHEN 325 MG TABLET (FP) PO PRN (23:24)
[2024-02-18] MEDS ORDERED: DOCUSATE SODIUM 100 MG CAPSULE (FP) PO PRN (23:24)
[2024-02-19] MEDS: SODIUM CHLORIDE 0.45% 1,000 ML IV SCH (00:50)
[2024-02-19] MEDS: LEVOTHYROXINE NA 125 MCG TABLET (FP) PO SCH (07:50)
[2024-02-19 08:15] LABS: EPITHELIAL CELLS 0-5 /hpf; URINE HYALINE CAST 0-1 /lpf
[2024-02-19 09:11] LABS: ACTIVATED PTT 29.8 SECONDS (25.2-36.5); INR 1.08 (0.83-1.09); PROTHROMBIN TIME (PATIENT) 12.5 SEC (9.7-13.0)
[2024-02-19 09:18] LABS: HEMATOCRIT 39.9 % (35.4-49); HEMOGLOBIN 12.7 G/dL (11.7-16.9); MCH 31.1 pg (25.7-33.7); MCHC 31.8 g/dl (32.0-35.9); MEAN CELL VOLUME 97.7 fl (80-96); MEAN PLT VOLUME 9.7 fl (7.5-11.1); PLATELET COUNT 164.9 10^3/uL (134-434); RBC 4.08 10^6/uL (4.00-5.60); RDW 16.2 % (11.9-15.9); WHITE BLOOD COUNT 9.6 10^3/uL (4.0-10.8)
[2024-02-19] MEDS: TAMSULOSIN HCL 0.4 MG CAP PO SCH (09:31)
[2024-02-19] MEDS: APIXABAN 2.5 MG TABLET PO SCH (09:31)
[2024-02-19] MEDS: ALLOPURINOL 100 MG TABLET (FP) PO SCH (09:31)
[2024-02-19] MEDS: FLUTICASONE/UMECLIDIN/VILANTER(100-62.5-25 TRELEGY ELLIPTA) INAHLER IH SCH (09:32)
[2024-02-19] MEDS ORDERED: ALBUTEROL SO4 HFA INHALER IH PRN (09:51)
[2024-02-19 10:15] LABS: ALBUMIN 3.1 g/dl (3.4-5.0); BILIRUBIN,TOTAL 0.8 mg/dl (0.2-1); CALCIUM 9.9 mg/dl (8.5-10.1); CREATININE 2.8 mg/dl (0.6-1.3); MAGNESIUM 1.6 mg/dL (1.8-2.4); PHOSPHOROUS 3.6 (2.5-4.9); POTASSIUM 4.5 mmol/L (3.5-5.1)
[2024-02-19] MEDS: AMPICILLIN NA/SULBACTAM NA 1.5 GM in SODIUM CHLORIDE 100 ML IVPB SCH (10:16)
[2024-02-19 12:01] LABS: N-TERMINAL BNP 1539.4 pg/ml (5-450)
[2024-02-19 13:23] VITALS: BMI 25.8
[2024-02-20 09:06] LABS: BILIRUBIN,TOTAL 0.9 mg/dl (0.2-1); CALCIUM 9.9 mg/dl (8.5-10.1); POTASSIUM 4.3 mmol/L (3.5-5.1); TOT PROT 5.9 g/dl (6.4-8.2)
[2024-02-20] MEDS: PREGABALIN 100 MG CAPSULE PO SCH (09:41)
[2024-02-20] MEDS: ASPIRIN COATED 81 MG TABLET.EC PO SCH (09:42)
[2024-02-20 09:57] LABS: BASO % 0.8 % (0-2.0); EOS % 5.6 % (0-4.5); LYMPH % 15.7 % (8-40); MCH 30.8 pg (25.7-33.7); MCHC 31.8 g/dl (32.0-35.9); MEAN CELL VOLUME 96.9 fl (80-96); MEAN PLT VOLUME 9.5 fl (7.5-11.1); MONO % 14.9 % (3.8-10.2); PLATELET COUNT 138 10^3/uL (134-434); RBC 4.23 M/mm3 (4.00-5.60); RDW 18.1 % (11.9-15.9)
[2024-02-21 07:50] LABS: HEMATOCRIT 43.5 % (35.4-49); HEMOGLOBIN 13.6 G/dL (11.7-16.9); MCH 30.7 pg (25.7-33.7); MCHC 31.1 g/dl (32.0-35.9); MEAN CELL VOLUME 98.4 fl (80-96); MEAN PLT VOLUME 10.2 fl (7.5-11.1); RBC 4.42 10^6/uL (4.00-5.60); RDW 16.5 % (11.9-15.9); WHITE BLOOD COUNT 6.7 10^3/uL (4.0-10.8)
[2024-02-21 07:58] LABS: CALCIUM 9.7 mg/dl (8.5-10.1); CREATININE 1.7 mg/dl (0.6-1.3); POTASSIUM 4.3 mmol/L (3.5-5.1)
[2024-02-21 14:41] VITALS: BP 116/68; PULSE 65; RESP 18; TEMP 97.1
== END 2024-02-21 15:27 | disposition home or self-care (01) | DRG 683 ==
LOC: FER 20:33 → FM/S 23:57
PROVIDERS: ADMIT Internal Medicine; ATTEND Internal Medicine
DX: N17.9 Acute kidney failure, unspecified (principal); I13.0 Hypertensive heart and chronic kidney disease with heart failure and stage 1 through stage 4 chronic kidney disease, or unspecified chronic kidney disease; I50.32 Chronic diastolic (congestive) heart failure; L03.116 Cellulitis of left lower limb; L03.115 Cellulitis of right lower limb; I24.89 Other forms of acute ischemic heart disease; R55 Syncope and collapse; I25.10 Atherosclerotic heart disease of native coronary artery without angina pectoris; Z95.1 Presence of aortocoronary bypass graft; I48.91 Unspecified atrial fibrillation; Z79.01 Long term (current) use of anticoagulants; E78.5 Hyperlipidemia, unspecified; N18.9 Chronic kidney disease, unspecified; Z99.81 Dependence on supplemental oxygen; J44.9 Chronic obstructive pulmonary disease, unspecified; I95.89 Other hypotension; F10.20 Alcohol dependence, uncomplicated; E03.9 Hypothyroidism, unspecified; M10.9 Gout, unspecified; N28.1 Cyst of kidney, acquired
CPT/HCPCS: 36415; 70450-TC; 71045-TC-FY; 71250-TC; 76775-TC; 80048; 80053; 81003; 81015; 82550; 83735; 83880; 84100; 84484; 85025; 85027; 85610; 85730; 93005; 97116-GP; 97161-GP; 99285-25

== ENCOUNTER 2024-05-20 07:12 | Emergency (ER) | payer OTHER, MEDICARE ==
[2024-05-20 08:18] VITALS: PULSE 60; BMI 28.3
[2024-05-20 09:43] VITALS: BP 90/60; RESP 14; TEMP 97
== END 2024-05-20 09:00 | disposition left against medical advice (07) ==
LOC: JER 07:12
DX: I95.9 Hypotension, unspecified (principal)
CPT/HCPCS: 93005; 93010; 99283-25

== ENCOUNTER → 2024-05-20 | Day surgery (SDC) | payer OTHER, MEDICARE ==
[2024-05-17 10:41] VITALS: BMI 28.3
[~2024-05-20] MED LIST: BUPIVACAINE HCL/PF 0.25% (2.5MG/ML) 10 ML VIAL ONE; LIDOCAINE HCL 1%, 10 MG/ML (20ML VIAL) ONE
[2024-05-20 06:47] VITALS: BP 88/55; PULSE 60; RESP 20; TEMP 97.4
== END | disposition home or self-care (01) ==
LOC: JASU-SURG 04:04
PROVIDERS: ATTEND Internal Medicine
DX: Z53.8 Procedure and treatment not carried out for other reasons (principal)

== ENCOUNTER 2024-05-21 12:41 | Emergency (ER) | payer OTHER, MEDICARE ==
[2024-05-21 12:49] VITALS: TEMP 97.9; BMI 28.3
[2024-05-21 15:20] LABS: BASO % 0.6 % (0-2.0); EOS % 6.7 % (0-4.5); HEMATOCRIT 34.7 % (35.4-49); HEMOGLOBIN 11.5 GM/dL (11.7-16.9); LYMPH % 17.9 % (8-40); MEAN CELL VOLUME 99.9 fl (80-96); MEAN PLT VOLUME 9.9 fl (7.5-11.1); MONO % 15.3 % (3.8-10.2); NEUT % 59.5 % (42.8-82.8); PLATELET COUNT 95 10^3/uL (134-434); RBC 3.47 M/mm3 (4.00-5.60); RDW 16.3 % (11.9-15.9); WHITE BLOOD COUNT 5.9 K/mm3 (4.0-10.0)
[2024-05-21 15:40] LABS: CHLORIDE 102 mmol/L (98-107); POTASSIUM 5.3 mmol/L (3.5-5.1); SODIUM 136 mmol/L (136-145)
[2024-05-21 15:43] LABS: ANION GAP 6 mmol/L (4-13); CALCIUM 9.1 mg/dL (8.5-10.1); CO2 28 mmol/L (21-32); GLUCOSE,RANDOM 92 mg/dL (74-106)
[2024-05-21 15:44] LABS: ALBUMIN 2.8 g/dl (3.4-5.0); BLOOD UREA NITROGEN 67.7 mg/dL (7-18)
[2024-05-21 15:46] LABS: SGOT/AST 44 U/L (15-37); SGPT/ALT 24 U/L (13-61)
[2024-05-21 15:48] LABS: ALK PHOS 128 U/L (45-117); BILIRUBIN,TOTAL 0.7 mg/dL (0.2-1); CREATININE 7.5 mg/dL (0.55-1.3); TOT PROT 6.3 g/dl (6.4-8.2)
[2024-05-21 16:47] LABS: CHLORIDE 102 mmol/L (98-107); POTASSIUM 5.1 mmol/L (3.5-5.1); SODIUM 136 mmol/L (136-145)
[2024-05-21 16:49] LABS: ANION GAP 10 mmol/L (4-13); BLOOD UREA NITROGEN 68.9 mg/dL (7-18); CALCIUM 9.2 mg/dL (8.5-10.1); CO2 25 mmol/L (21-32); GLUCOSE,RANDOM 94 mg/dL (74-106)
[2024-05-21 17:04] LABS: CREATININE 7.5 mg/dL (0.55-1.3)
[2024-05-21 17:08] VITALS: BP 119/70; PULSE 60; RESP 18
== END 2024-05-21 17:19 | disposition short-term general hospital (02) ==
LOC: JER 12:41
DX: I95.9 Hypotension, unspecified (principal); R60.0 Localized edema; Z45.010 Encounter for checking and testing of cardiac pacemaker pulse generator [battery]
CPT/HCPCS: 36415; 80048; 80053; 85025; 93005; 93010; 99285-25

== ENCOUNTER 2024-08-03 17:23 | Inpatient (IN) | payer OTHER, MEDICARE ==
[2024-08-03 21:01] LABS: HEMATOCRIT 49.3 % (35.4-49); HEMOGLOBIN 15.8 G/dL (11.7-16.9); MCH 32.6 pg (25.7-33.7); MEAN CELL VOLUME 102.1 fl (80-96); MEAN PLT VOLUME 8.6 fl (7.5-11.1); PLATELET COUNT 266.6 10^3/uL (134-434); RBC 4.83 10^6/uL (4.00-5.60); RDW 15.1 % (11.9-15.9); WHITE BLOOD COUNT 15.3 10^3/uL (4.0-10.8)
[2024-08-03 21:06] LABS: INR 1.14 (0.83-1.09)
[2024-08-03 21:27] LABS: ALBUMIN 3.5 g/dl (3.4-5.0); BILIRUBIN,TOTAL 1.4 mg/dl (0.2-1); CALCIUM 10.5 mg/dl (8.5-10.1); CREATININE 1.8 mg/dl (0.6-1.3); POTASSIUM 3.6 mmol/L (3.5-5.1); TOT PROT 6.9 g/dl (6.4-8.2)
[2024-08-03] MEDS: SODIUM CHLORIDE 500 ML IV STA (21:40)
[2024-08-03 22:00] LABS: PLATELET ESTIMATE ADEQUATE
[2024-08-03] MEDS: SODIUM CHLORIDE 1,000 ML IV SCH (22:37)
[2024-08-03 23:03] LABS: N-TERMINAL BNP 1666.5 pg/ml (5-450)
[2024-08-03] MEDS ORDERED: ACETAMINOPHEN INJECTION 100 ML ONE (23:26)
[2024-08-03] MEDS: ACETAMINOPHEN 1000 MG/100 ML BAG IVPB ONE (23:29)
[2024-08-03 23:39] LABS: LACTIC ACID 2.3 mmol/L (0.4-2.0)
[2024-08-04 02:12] LABS: EPI CELLS 15 /uL (0-25.1); HYALINE CASTS 2 /uL (0-3.1); PH,URINE 5.5 (5.0-8.0); URINE APPEARANCE CLEAR; URINE BACTERIA 4 /uL (0-1359); URINE BILIRUBIN NEGATIVE (NEGATIVE); URINE COLOR YELLOW; URINE GLUCOSE (UA) NEGATIVE (NEGATIVE); URINE KETONE NEGATIVE (NEGATIVE); URINE LEUK ESTERASE 2+ (NEGATIVE); URINE NITRITE NEGATIVE (NEGATIVE); URINE PROTEIN 1+ (NEGATIVE); URINE RBC 3923 /uL (0-23.9); URINE WBC 76 /uL (0-25.8)
[2024-08-04] MEDS: LEVOTHYROXINE NA 112 MCG TABLET (FP) PO SCH (06:28)
[2024-08-04] MEDS: TAMSULOSIN HCL 0.4 MG CAP PO SCH (08:26)
[2024-08-04] MEDS: ALLOPURINOL 100 MG TABLET (FP) PO SCH (09:35)
[2024-08-04] MEDS: metoPROLOL SUCCINATE 25 MG TAB.SR.24H (FP) PO SCH (09:37)
[2024-08-04] MEDS: ISOSORBIDE MONONITRATE 30 MG TAB.SR.24H (FP) PO SCH (09:38)
[2024-08-04] MEDS: APIXABAN 2.5 MG TABLET PO SCH (09:38)
[2024-08-04] MEDS: COLCHICINE 0.6 MG TAB PO SCH (09:38)
[2024-08-04 09:39] LABS: CALCIUM 9.7 mg/dl (8.5-10.1); CREATININE 1.8 mg/dl (0.6-1.3); MAGNESIUM 1.6 mg/dL (1.8-2.4); PHOSPHOROUS 2.8 (2.5-4.9); POTASSIUM 3.4 mmol/L (3.5-5.1)
[2024-08-04] MEDS: FLUTICASONE/UMECLIDIN/VILANTER(100-62.5-25 TRELEGY ELLIPTA) INAHLER IH SCH (09:39)
[2024-08-04] MEDS ORDERED: PREGABALIN 75 MG CAPSULE PO SCH (10:00)
[2024-08-04] MEDS: CEFTRIAXONE 1 GM in DEXTROSE 5%-WATER - 50 ML IVPB SCH (10:56)
[2024-08-04 11:15] LABS: BASO % 0.2 % (0-2.0); EOS % 0.3 % (0-4.5); HEMATOCRIT 46.3 % (35.4-49); HEMOGLOBIN 14.9 GM/dL (11.7-16.9); LYMPH % 6.8 % (8-40); MCH 32.2 pg (25.7-33.7); MCHC 32.1 g/dl (32.0-35.9); MEAN CELL VOLUME 100.2 fl (80-96); MEAN PLT VOLUME 8.6 fl (7.5-11.1); MONO % 12.3 % (3.8-10.2); NEUT % 80.4 % (42.8-82.8); PLATELET COUNT 275 10^3/uL (134-434); RBC 4.62 M/mm3 (4.00-5.60); RDW 15.8 % (11.9-15.9); WHITE BLOOD COUNT 14.3 K/mm3 (4.0-10.0)
[2024-08-04] MEDS: PIPERACILLIN/TAZOB 2.25 GM 2.25 GM in DEXTROSE 5%-WATER - 50 ML IVPB SCH (17:29)
[2024-08-04] MEDS: DOCUSATE SODIUM 100 MG CAPSULE (FP) PO SCH (21:13)
[2024-08-05 09:25] LABS: ALBUMIN 2.5 g/dl (3.4-5.0); BILIRUBIN,TOTAL 0.9 mg/dl (0.2-1); CALCIUM 8.8 mg/dl (8.5-10.1); CREATININE 1.7 mg/dl (0.6-1.3); POTASSIUM 3.3 mmol/L (3.5-5.1); TOT PROT 5.1 g/dl (6.4-8.2)
[2024-08-05 10:03] LABS: BASO % 0.1 % (0-2.0); EOS % 0.7 % (0-4.5); HEMATOCRIT 38.7 % (35.4-49); HEMOGLOBIN 12.6 GM/dL (11.7-16.9); LYMPH % 5.3 % (8-40); MCH 32.2 pg (25.7-33.7); MCHC 32.6 g/dl (32.0-35.9); MEAN CELL VOLUME 98.5 fl (80-96); MEAN PLT VOLUME 8.5 fl (7.5-11.1); MONO % 14.4 % (3.8-10.2); NEUT % 79.5 % (42.8-82.8); PLATELET COUNT 244 10^3/uL (134-434); RBC 3.93 M/mm3 (4.00-5.60); RDW 15.6 % (11.9-15.9); WHITE BLOOD COUNT 15.2 K/mm3 (4.0-10.0)
[2024-08-05 14:29] VITALS: BMI 25.2
[2024-08-05] MEDS: MAGNESIUM OXIDE 400 MG TABLET (FP) PO ONE (14:49)
[2024-08-05] MEDS: POTASSIUM CHLORIDE ORAL LIQUID 20 MEQ/15 ML PO ONE (14:49)
[2024-08-06] MEDS: methylPREDNISolone 4 MG TABLET PO ONE (15:14)
[2024-08-06] MEDS: COLCHICINE 0.6 MG TAB PO ONE (15:14)
[2024-08-07 08:09] LABS: ALBUMIN 2.4 g/dl (3.4-5.0); BILIRUBIN,TOTAL 0.7 mg/dl (0.2-1); CALCIUM 8.7 mg/dl (8.5-10.1); CREATININE 1.3 mg/dl (0.6-1.3); MAGNESIUM 1.4 mg/dL (1.8-2.4); PHOSPHOROUS 2.3 (2.5-4.9); POTASSIUM 4.1 mmol/L (3.5-5.1); TOT PROT 4.9 g/dl (6.4-8.2)
[2024-08-07] MEDS ORDERED: MAGNESIUM SULF 50% (8.12 MEQ/2 ML-1 GM VIAL) IVPB ONE (08:37)
[2024-08-07 09:21] LABS: MEAN CELL VOLUME 98.9 fl (80-96); RDW 15.9 % (11.9-15.9)
[2024-08-07 09:24] LABS: HEMATOCRIT 37.4 % (35.4-49); HEMOGLOBIN 12.2 GM/dL (11.7-16.9); MCH 32.3 pg (25.7-33.7); MCHC 32.7 g/dl (32.0-35.9); MEAN PLT VOLUME 8.4 fl (7.5-11.1); PLATELET COUNT 269 10^3/uL (134-434); RBC 3.78 M/mm3 (4.00-5.60); WHITE BLOOD COUNT 11.7 K/mm3 (4.0-10.0)
[2024-08-07] MEDS: MAGNESIUM SULFATE IN WATER 2 GM/50 ML IVPB IVPB ONE (09:34)
[2024-08-07 10:23] LABS: ANISOCYTOSIS 0; HELMET CELLS 0; HOWELL-JOLLY BODIES 0; MACROCYTOSIS 0; OVALOCYTE 0; ROULEAU 0; SICKELED CELLS 0; TARGET CELLS 0; TEAR DROP CELLS 0; TOXIC GRANULATION 0
[2024-08-07] MEDS: SODIUM PHOSPHATE - 15 MM in SODIUM CHLORIDE 250 ML IVPB ONE (11:12)
[2024-08-07] MEDS: PREGABALIN 100 MG CAPSULE PO SCH ×2 (11:13→22:11)
[2024-08-07] MEDS: methylPREDNISolone 4 MG TABLET PO ONE (18:04)
[2024-08-07 22:11] VITALS: BP 114/71; PULSE 60; RESP 18; TEMP 98.7
== END 2024-08-07 22:14 | DRG 603 ==
LOC: FER 17:23 → FM/S 23:23
PROVIDERS: ADMIT Internal Medicine; ATTEND Internal Medicine
DX: L03.116 Cellulitis of left lower limb (principal); I13.0 Hypertensive heart and chronic kidney disease with heart failure and stage 1 through stage 4 chronic kidney disease, or unspecified chronic kidney disease; I50.32 Chronic diastolic (congestive) heart failure; L03.115 Cellulitis of right lower limb; J44.9 Chronic obstructive pulmonary disease, unspecified; I10 Essential (primary) hypertension; E03.9 Hypothyroidism, unspecified; G57.92 Unspecified mononeuropathy of left lower limb; M10.9 Gout, unspecified; N18.9 Chronic kidney disease, unspecified; I25.10 Atherosclerotic heart disease of native coronary artery without angina pectoris; E78.5 Hyperlipidemia, unspecified; Z95.1 Presence of aortocoronary bypass graft
CPT/HCPCS: 36415; 70450-TC; 71045-TC-FY; 72170-TC-FY; 80048; 80053; 81003; 83605; 83735; 83880; 84100; 84443; 85025; 85027; 85610; 85730; 86850; 86900; 86901; 87086; 87635; 93005; 93970-TC; 97116-GP; 97162-GP; 99285-25; J0131

== ENCOUNTER 2024-10-09 09:59 | Inpatient (IN) | payer OTHER, MEDICARE ==
[2024-10-09 11:34] LABS: BASO % 0.3 % (0-2.0); EOS % 1.8 % (0-4.5); HEMATOCRIT 24.6 % (35.4-49); LYMPH % 7.8 % (8-40); MCH 29.6 pg (25.7-33.7); MCHC 32.6 g/dl (32.0-35.9); MEAN CELL VOLUME 90.9 fl (80-96); MEAN PLT VOLUME 8.3 fl (7.5-11.1); MONO % 10.8 % (3.8-10.2); NEUT % 79.3 % (42.8-82.8); PLATELET COUNT 245 10^3/uL (134-434); RDW 17.1 % (11.9-15.9); WHITE BLOOD COUNT 9.8 K/mm3 (4.0-10.0)
[2024-10-09 11:56] LABS: POTASSIUM 4.8 mmol/L (3.5-5.1)
[2024-10-09 11:57] LABS: CALCIUM 9.1 mg/dL (8.5-10.1)
[2024-10-09 11:58] LABS: ALBUMIN 1.8 g/dl (3.4-5.0); BLOOD UREA NITROGEN 75.5 mg/dL (7-18); MAGNESIUM 2.1 mg/dL (1.8-2.4)
[2024-10-09 12:01] LABS: CREATININE 2.3 mg/dL (0.55-1.3)
[2024-10-09 12:03] LABS: BILIRUBIN,TOTAL 0.8 mg/dL (0.2-1); TOT PROT 5.8 g/dl (6.4-8.2)
[2024-10-09] MEDS: SODIUM CHLORIDE 500 ML IV STA (12:21)
[2024-10-09 12:25] LABS: INR 1.81 (0.83-1.09); PROTHROMBIN TIME (PATIENT) 20.5 SEC (9.7-13.0)
[2024-10-09 13:21] LABS: EPI CELLS 5 /uL (0-25.1); HYALINE CASTS 13 /uL (0-3.1); URINE APPEARANCE TURBID; URINE BACTERIA 2951 /uL (0-1359); URINE BILIRUBIN NEGATIVE (NEGATIVE); URINE COLOR YELLOW; URINE GLUCOSE (UA) NEGATIVE (NEGATIVE); URINE KETONE NEGATIVE (NEGATIVE); URINE LEUK ESTERASE 3+ (NEGATIVE); URINE NITRITE POSITIVE (NEGATIVE); URINE PROTEIN 2+ (NEGATIVE); URINE UROBILINOGEN 0.2 mg/dL (0.2-1.0); URINE WBC 34623 /uL (0-25.8)
[2024-10-09 13:43] LABS: URINE RBC 542 /uL (0-23.9); YEAST NONE SEEN (NEGATIVE)
[2024-10-09] MEDS ORDERED: CEFTRIAXONE 1 G/50 ML PREMIX 50 ML IVPB ONE (13:54)
[2024-10-09] MEDS: CEFTRIAXONE 1,000 MG in DEXTROSE 5%-WATER - 50 ML IVPB ONE (14:16)
[2024-10-10] MEDS: ACETAMINOPHEN 325 MG TABLET (FP) PO ONE (05:48)
[2024-10-10 07:49] LABS: BASO % 0.3 % (0-2.0); EOS % 1.6 % (0-4.5); HEMATOCRIT 27.4 % (35.4-49); HEMOGLOBIN 8.6 GM/dL (11.7-16.9); LYMPH % 5.2 % (8-40); MCH 29.2 pg (25.7-33.7); MCHC 31.2 g/dl (32.0-35.9); MEAN CELL VOLUME 93.8 fl (80-96); MEAN PLT VOLUME 8.5 fl (7.5-11.1); MONO % 9.9 % (3.8-10.2); PLATELET COUNT 311 10^3/uL (134-434); RBC 2.93 M/mm3 (4.00-5.60); RDW 17.3 % (11.9-15.9); WHITE BLOOD COUNT 11.9 K/mm3 (4.0-10.0)
[2024-10-10 08:04] LABS: POTASSIUM 4.8 mmol/L (3.5-5.1)
[2024-10-10 08:20] LABS: CALCIUM 9.4 mg/dL (8.5-10.1)
[2024-10-10 08:21] LABS: ALBUMIN 1.9 g/dl (3.4-5.0); BLOOD UREA NITROGEN 68.4 mg/dL (7-18); MAGNESIUM 2.1 mg/dL (1.8-2.4)
[2024-10-10 08:23] LABS: PHOSPHOROUS 3.2 mg/dL (2.5-4.9)
[2024-10-10 08:24] LABS: CREATININE 1.9 mg/dL (0.55-1.3)
[2024-10-10 08:25] LABS: BILIRUBIN,TOTAL 0.8 mg/dL (0.2-1); TOT PROT 6.2 g/dl (6.4-8.2)
[2024-10-10] MEDS: metoPROLOL SUCCINATE 25 MG TAB.SR.24H (FP) PO SCH (10:31)
[2024-10-10] MEDS: PREGABALIN 100 MG CAPSULE PO SCH (10:32)
[2024-10-10] MEDS: ALLOPURINOL 100 MG TABLET (FP) PO SCH (10:33)
[2024-10-10] MEDS: PANTOPRAZOLE 40 MG TABLET PO SCH (10:33)
[2024-10-10] MEDS: TAMSULOSIN HCL 0.4 MG CAP PO SCH (10:33)
[2024-10-10] MEDS: LEVOTHYROXINE NA 125 MCG TABLET (FP) PO SCH (10:33)
[2024-10-10] MEDS: CEFTRIAXONE 1 G/50 ML PREMIX 50 ML IVPB SCH (10:33)
[2024-10-10] MEDS: ISOSORBIDE MONONITRATE 30 MG TAB.SR.24H (FP) PO SCH (10:33)
[2024-10-10] MEDS: IRON SUCROSE INJECTION 200 MG in SODIUM CHLORIDE 100 ML IVPB ONE (11:22)
[2024-10-10] MEDS: FLUTICASONE/UMECLIDIN/VILANTER(100-62.5-25 TRELEGY ELLIPTA) INAHLER IH SCH (11:22)
[2024-10-10] MEDS: PNEUMOC 20-VAL CONJ-DIP CRM/PF 0.5 ML SYRINGE IM ONE (12:43)
[2024-10-10] MEDS: ATORVASTATIN CA 10 MG TABLET (FP) PO SCH (23:15)
[2024-10-11 08:29] LABS: BASO % 0.4 % (0-2.0); EOS % 0.9 % (0-4.5); HEMATOCRIT 29.3 % (35.4-49); HEMOGLOBIN 9.4 GM/dL (11.7-16.9); LYMPH % 8.2 % (8-40); MCH 29.9 pg (25.7-33.7); MCHC 32.2 g/dl (32.0-35.9); MEAN CELL VOLUME 92.9 fl (80-96); MEAN PLT VOLUME 8.4 fl (7.5-11.1); MONO % 10.5 % (3.8-10.2); PLATELET COUNT 291 10^3/uL (134-434); RBC 3.16 M/mm3 (4.00-5.60); RDW 17.7 % (11.9-15.9); WHITE BLOOD COUNT 10.3 K/mm3 (4.0-10.0)
[2024-10-11 08:47] LABS: POTASSIUM 4.7 mmol/L (3.5-5.1)
[2024-10-11 08:54] LABS: CALCIUM 9.2 mg/dL (8.5-10.1)
[2024-10-11 08:55] LABS: ALBUMIN 1.9 g/dl (3.4-5.0); BLOOD UREA NITROGEN 49.3 mg/dL (7-18)
[2024-10-11 08:56] LABS: BILIRUBIN,TOTAL 0.8 mg/dL (0.2-1); TOT PROT 5.8 g/dl (6.4-8.2)
[2024-10-11 08:58] LABS: CREATININE 1.6 mg/dL (0.55-1.3)
[2024-10-11] MEDS: IRON SUCROSE INJECTION 200 MG in SODIUM CHLORIDE 100 ML IVPB ONE (10:49)
[2024-10-12 06:49] LABS: HEMATOCRIT 26.6 % (35.4-49); HEMOGLOBIN 8.5 GM/dL (11.7-16.9); MCH 29.5 pg (25.7-33.7); MCHC 31.8 g/dl (32.0-35.9); MEAN CELL VOLUME 92.9 fl (80-96); PLATELET COUNT 258 10^3/uL (134-434); RBC 2.87 M/mm3 (4.00-5.60); RDW 17.4 % (11.9-15.9); WHITE BLOOD COUNT 9.5 K/mm3 (4.0-10.0)
[2024-10-12 06:50] LABS: MEAN PLT VOLUME 8.4 fl (7.5-11.1)
[2024-10-12 07:08] LABS: POTASSIUM 4.7 mmol/L (3.5-5.1)
[2024-10-12 07:10] LABS: CALCIUM 8.7 mg/dL (8.5-10.1)
[2024-10-12 07:11] LABS: ALBUMIN 1.8 g/dl (3.4-5.0); BLOOD UREA NITROGEN 36.4 mg/dL (7-18)
[2024-10-12 07:14] LABS: CREATININE 1.3 mg/dL (0.55-1.3)
[2024-10-12 07:16] LABS: BILIRUBIN,TOTAL 0.6 mg/dL (0.2-1); TOT PROT 5.6 g/dl (6.4-8.2)
[2024-10-12] MEDS: IRON SUCROSE INJECTION 200 MG in SODIUM CHLORIDE 100 ML IVPB ONE (09:31)
[2024-10-12 10:22] LABS: ANISOCYTOSIS 0; HELMET CELLS 0; HOWELL-JOLLY BODIES 0; MACROCYTOSIS 0; OVALOCYTE 0; ROULEAU 0; SICKELED CELLS 0; TARGET CELLS 0; TEAR DROP CELLS 0; TOXIC GRANULATION 0
[2024-10-12] MEDS: ERTAPENEM SODIUM 1 GM in SODIUM CHLORIDE 50 ML IVPB SCH (11:15)
[2024-10-12] MEDS: POLYETHYLENE GLYCOL (HEALTHYLAX) 3350 17 GM PACKET PO ONE (23:00)
[2024-10-13] MEDS: FUROSEMIDE 40 MG/4 ML INJECTABLE VIAL IVPUSH ONE (08:45)
[2024-10-13] MEDS: ACETAMINOPHEN 1000 MG/100 ML BAG IVPB ONE (23:00)
[2024-10-14 06:49] LABS: HEMATOCRIT 25.5 % (35.4-49); MCH 29.5 pg (25.7-33.7); MCHC 31.3 g/dl (32.0-35.9); MEAN CELL VOLUME 94.3 fl (80-96); MEAN PLT VOLUME 8.8 fl (7.5-11.1); PLATELET COUNT 223 10^3/uL (134-434); WHITE BLOOD COUNT 10.2 K/mm3 (4.0-10.0)
[2024-10-14 07:08] LABS: POTASSIUM 5.1 mmol/L (3.5-5.1)
[2024-10-14 07:10] LABS: ALBUMIN 1.6 g/dl (3.4-5.0); BLOOD UREA NITROGEN 28.6 mg/dL (7-18); CALCIUM 8.5 mg/dL (8.5-10.1)
[2024-10-14 07:15] LABS: BILIRUBIN,TOTAL 0.4 mg/dL (0.2-1); CREATININE 1.5 mg/dL (0.55-1.3); TOT PROT 5.3 g/dl (6.4-8.2)
[2024-10-14] MEDS: FUROSEMIDE 40 MG TABLET (FP) PO SCH (09:58)
[2024-10-15 06:13] VITALS: RESP 18
[2024-10-15 08:02] LABS: POTASSIUM 5.4 mmol/L (3.5-5.1)
[2024-10-15 08:12] LABS: BLOOD UREA NITROGEN 27.9 mg/dL (7-18)
[2024-10-15 08:14] LABS: CREATININE 1.4 mg/dL (0.55-1.3)
[2024-10-15 14:17] VITALS: BP 113/70; PULSE 61; TEMP 98.6
[2024-10-15 15:10] VITALS: BMI 27.6
[2024-10-15] MEDS: SODIUM ZIRCONIUM CYCLOSILICATE (LOKELMA) 5 GM PACKET PO SCH (15:27)
[2024-10-15 19:13] LABS: FREE KAPPA,SERUM 89.2 mg/L (3.3-19.4)
== END 2024-10-15 17:04 | DRG 690 ==
LOC: JER 09:59 → JERBED 14:29 → J4W 18:08
PROVIDERS: ADMIT Internal Medicine; ATTEND Internal Medicine
DX: N39.0 Urinary tract infection, site not specified (principal); I50.32 Chronic diastolic (congestive) heart failure; I13.0 Hypertensive heart and chronic kidney disease with heart failure and stage 1 through stage 4 chronic kidney disease, or unspecified chronic kidney disease; N17.9 Acute kidney failure, unspecified; I25.10 Atherosclerotic heart disease of native coronary artery without angina pectoris; I48.91 Unspecified atrial fibrillation; J44.9 Chronic obstructive pulmonary disease, unspecified; N18.9 Chronic kidney disease, unspecified; D64.9 Anemia, unspecified; Z99.81 Dependence on supplemental oxygen; Z95.0 Presence of cardiac pacemaker; E03.9 Hypothyroidism, unspecified; N40.1 Benign prostatic hyperplasia with lower urinary tract symptoms; R33.8 Other retention of urine; I27.20 Pulmonary hypertension, unspecified
CPT/HCPCS: 0241U-QW; 36415; 70450-TC; 71045-TC-FY; 73110-TC-RT-FY; 73130-TC-RT-FY; 76705-TC; 76856-TC; 80048; 80053; 80061; 81003; 82272; 82728; 82747; 82977; 83010; 83036; 83540; 83550; 83615; 83735; 83883; 84100; 84155; 84165; 84439; 84443; 84480; 84484; 85014; 85025; 85027; 85045; 85610; 86704; 86708; 86803; 86850; 86900; 86901; 87086; 87186; 87340; 87517; 90677; 93005; 93010; 93306-TC; 97116-GP; 97162-GP; 99285-25; J0131; J1756

== ENCOUNTER 2024-11-08 10:39 | Inpatient (IN) | payer OTHER, MEDICARE ==
[2024-11-08] MEDS: ACETAMINOPHEN 1000 MG/100 ML BAG IVPB ONE (11:00)
[2024-11-08] MEDS ORDERED: ALBUTEROL SO4 2.5/IPRATROPIUM 0.5 INH SOL 3 ML VIAL.NEB. NEB ONE (11:07)
[2024-11-08] MEDS: ALBUTEROL SO4 2.5/IPRATROPIUM 0.5 INH SOL 3 ML VIAL.NEB. NEB ONE (11:15)
[2024-11-08] MEDS ORDERED: PIPERACILLIN/TAZOB 4.5 GM 4.5 GM/100 ML BAG IVPB ONE (11:28)
[2024-11-08] MEDS ORDERED: ACETAMINOPHEN INJECTION 100 ML ONE (11:28)
[2024-11-08] MEDS ORDERED: methylPREDNISolone NA SUCC 125 MG/2 ML VIAL ONE (11:28)
[2024-11-08] MEDS ORDERED: VANCOMYCIN 1 GM PREMIX (F) 1 GM/200 ML BAG ONE (11:29)
[2024-11-08] MEDS: methylPREDNISolone NA SUCC 125 MG/2 ML VIAL IVPUSH ONE (11:39)
[2024-11-08] MEDS: PIPERACILLIN/TAZOB 4.5 GM 4.5 GM in DEXTROSE 5%-WATER 100 ML IVPB ONE (11:39)
[2024-11-08 12:02] LABS: BASO % 0.4 % (0-2.0); EOS % 0.2 % (0-4.5); HEMATOCRIT 28.4 % (35.4-49); HEMOGLOBIN 8.8 GM/dL (11.7-16.9); MCH 28.5 pg (25.7-33.7); MCHC 30.8 g/dl (32.0-35.9); MEAN CELL VOLUME 92.6 fl (80-96); MEAN PLT VOLUME 8.8 fl (7.5-11.1); MONO % 7.5 % (3.8-10.2); NEUT % 89.9 % (42.8-82.8); PLATELET COUNT 190 10^3/uL (134-434); RBC 3.07 M/mm3 (4.00-5.60); RDW 18.4 % (11.9-15.9); WHITE BLOOD COUNT 13.4 K/mm3 (4.0-10.0)
[2024-11-08 12:06] LABS: VENOUS BASE EXCESS -2.5 mmol/L (-2-2); VENOUS O2 SATURATION 67.8 % (70-80); VENOUS PH 7.279 (7.310-7.410)
[2024-11-08 12:13] LABS: INR 1.51 (0.83-1.09); PROTHROMBIN TIME (PATIENT) 17.2 SEC (9.7-13.0)
[2024-11-08 12:16] LABS: ACTIVATED PTT 34.2 SECONDS (25.2-36.5)
[2024-11-08] MEDS: VANCOMYCIN 1,000 MG in DEXTROSE 5%-WATER - 250 ML IVPB ONE (12:28)
[2024-11-08 12:35] LABS: POTASSIUM 5.4 mmol/L (3.5-5.1)
[2024-11-08 12:39] LABS: BLOOD UREA NITROGEN 59.7 mg/dL (7-18)
[2024-11-08 12:40] LABS: ALBUMIN 2.1 g/dl (3.4-5.0); CALCIUM 8.8 mg/dL (8.5-10.1)
[2024-11-08 12:43] LABS: CREATININE 2.7 mg/dL (0.55-1.3)
[2024-11-08 12:45] LABS: BILIRUBIN,TOTAL 0.5 mg/dL (0.2-1); TOT PROT 6.5 g/dl (6.4-8.2)
[2024-11-08 12:49] LABS: LACTIC ACID 2.7 mmol/L (0.4-2.0)
[2024-11-08] MEDS ORDERED: OSELTAMIVIR PHOSPHATE 75 MG CAPSULE ONE (13:17)
[2024-11-08] MEDS: SODIUM CHLORIDE 0.9% 500 ML INFUS.BAG IV ONE ×2 (13:46→17:21)
[2024-11-08] MEDS: OSELTAMIVIR PHOSPHATE 6 MG/1 ML PO ONE ×2 (14:01→17:19)
[2024-11-08 15:55] LABS: EPI CELLS 22 /uL (0-25.1); HYALINE CASTS 2 /uL (0-3.1); URINE APPEARANCE CLOUDY; URINE BACTERIA 50 /uL (0-1359); URINE BILIRUBIN NEGATIVE (NEGATIVE); URINE COLOR YELLOW; URINE GLUCOSE (UA) NEGATIVE (NEGATIVE); URINE KETONE NEGATIVE (NEGATIVE); URINE LEUK ESTERASE 1+ (NEGATIVE); URINE NITRITE NEGATIVE (NEGATIVE); URINE PROTEIN 1+ (NEGATIVE); URINE RBC 386 /uL (0-23.9); URINE WBC 152 /uL (0-25.8)
[2024-11-08 16:14] LABS: ARTERIAL BLD GAS O2 SATURATION 97.6 % (95-98); ARTERIAL BLOOD GAS BASE EXCESS -5.7 mmol/L (-2-2); ARTERIAL BLOOD GAS PO2 115.5 mmHg (80-100); ARTERIAL BLOOD GAS pH 7.263 (7.350-7.450)
[2024-11-08] MEDS: SODIUM CHLORIDE 500 ML IV STA (20:29)
[2024-11-09] MEDS ORDERED: PHENYLEPHRINE HCL 10,000 MCG in DEXTROSE 5%-WATER - 499 ML IV SCH (01:00)
[2024-11-09] MEDS ORDERED: methylPREDNISolone NA SUCC 40 MG/1 ML VIAL ONE (01:01)
[2024-11-09] MEDS ORDERED: ACETAMINOPHEN 1000 MG/100 ML BAG IVPB PRN (01:05)
[2024-11-09] MEDS: methylPREDNISolone NA SUCC 40 MG/1 ML VIAL IVPUSH SCH (01:12)
[2024-11-09] MEDS ORDERED: PIPERACILLIN/TAZOB 2.25 GM 2.25 GM/50 ML BAG IVPB ONE (01:14)
[2024-11-09] MEDS ORDERED: NOREPINEPHRINE BITARTRATE 4 MG/4 ML ML IV ONE (01:19)
[2024-11-09] MEDS: NOREPINEPHRINE BITARTRATE 4,000 MCG in DEXTROSE 5%-WATER - 496 ML IV SCH (02:10)
[2024-11-09 02:38] VITALS: BMI 27.3
[2024-11-09] MEDS: PIPERACILLIN/TAZOB 2.25 GM 2.25 GM/50 ML BAG IVPB SCH (04:11)
[2024-11-09] MEDS ORDERED: HEPARIN NA (PORCINE) 5,000 UNITS/ML 1ML VIAL SQ SCH (06:00)
[2024-11-09] MEDS: LEVOTHYROXINE NA 125 MCG TABLET (FP) PO SCH (06:47)
[2024-11-09 07:20] LABS: HEMOGLOBIN 8.1 GM/dL (11.7-16.9); MCH 28.5 pg (25.7-33.7); PLATELET COUNT 158 10^3/uL (134-434); RBC 2.83 M/mm3 (4.00-5.60); RDW 17.8 % (11.9-15.9); WHITE BLOOD COUNT 6.5 K/mm3 (4.0-10.0)
[2024-11-09 07:22] LABS: POTASSIUM 4.9 mmol/L (3.5-5.1)
[2024-11-09 07:31] LABS: ALBUMIN 1.8 g/dl (3.4-5.0); BLOOD UREA NITROGEN 64.9 mg/dL (7-18)
[2024-11-09 07:32] LABS: BILIRUBIN,TOTAL 0.4 mg/dL (0.2-1); MAGNESIUM 1.8 mg/dL (1.8-2.4); TOT PROT 5.4 g/dl (6.4-8.2)
[2024-11-09 07:34] LABS: CREATININE 2.4 mg/dL (0.55-1.3); PHOSPHOROUS 7.2 mg/dL (2.5-4.9)
[2024-11-09 09:52] LABS: ANISOCYTOSIS 0; HELMET CELLS 0; HOWELL-JOLLY BODIES 0; MACROCYTOSIS 0; OVALOCYTE 0; ROULEAU 0; SICKELED CELLS 0; TARGET CELLS 0; TEAR DROP CELLS 0; TOXIC GRANULATION 0
[2024-11-09] MEDS ORDERED: MUPIROCIN 2% TOPICAL OINTMENT FOR DECOLONIZATION NS SCH (10:00)
[2024-11-09] MEDS ORDERED: metoPROLOL SUCCINATE 25 MG TAB.SR.24H (FP) PO SCH (10:00)
[2024-11-09] MEDS ORDERED: ENOXAPARIN NA (PORCINE) 40 MG/0.4 ML DISP.SYRIN SQ SCH (10:00)
[2024-11-09] MEDS ORDERED: ALBUTEROL SO4 2.5/IPRATROPIUM 0.5 INH SOL 3 ML VIAL.NEB. NEB PRN (10:14)
[2024-11-09] MEDS: APIXABAN 2.5 MG TABLET PO SCH (10:26)
[2024-11-09] MEDS: TAMSULOSIN HCL 0.4 MG CAP PO SCH (10:26)
[2024-11-09] MEDS: CEFTRIAXONE 1 G/50 ML PREMIX 50 ML IVPB SCH (10:27)
[2024-11-09] MEDS: MAGNESIUM 1GM/D5W - 1 GM/100 ML IVPB IVPB ONE (10:41)
[2024-11-09] MEDS ORDERED: ALBUTEROL SO4 2.5/IPRATROPIUM 0.5 INH SOL 3 ML VIAL.NEB. NEB SCH (12:00)
[2024-11-09] MEDS: OSELTAMIVIR PHOSPHATE 30 MG CAPSULE PO SCH (13:09)
[2024-11-09] MEDS: FLUTICASONE/UMECLIDIN/VILANTER(100-62.5-25 TRELEGY ELLIPTA) INAHLER IH SCH (13:09)
[2024-11-09] MEDS: PIPERACILLIN/TAZOB 2.25 GM 2.25 GM in DEXTROSE 5%-WATER - 50 ML IVPB SCH (14:45)
[2024-11-09] MEDS ORDERED: CHLORHEXIDINE GLUCONATE 4% CLEANSER FOR DECOLONIZATION TP SCH (22:00)
[2024-11-10] MEDS ORDERED: INSULIN REGULAR HUMAN 100 UNITS/ML *VIAL ONE (09:32)
[2024-11-10] MEDS: MIDODRINE HCL 5 MG TABLET PO SCH (17:12)
[2024-11-11 08:01] LABS: HEMATOCRIT 28.3 % (35.4-49); HEMOGLOBIN 8.9 GM/dL (11.7-16.9); MCHC 31.4 g/dl (32.0-35.9); MEAN CELL VOLUME 92.5 fl (80-96); MEAN PLT VOLUME 8.8 fl (7.5-11.1); PLATELET COUNT 136 10^3/uL (134-434); RBC 3.06 M/mm3 (4.00-5.60); RDW 17.6 % (11.9-15.9); WHITE BLOOD COUNT 7.1 K/mm3 (4.0-10.0)
[2024-11-11 08:08] LABS: POTASSIUM 5.1 mmol/L (3.5-5.1)
[2024-11-11 08:21] LABS: ALBUMIN 1.8 g/dl (3.4-5.0); CREATININE 2.6 mg/dL (0.55-1.3)
[2024-11-11 08:22] LABS: BLOOD UREA NITROGEN 76.4 mg/dL (7-18)
[2024-11-11 08:23] LABS: BILIRUBIN,TOTAL 0.4 mg/dL (0.2-1); CALCIUM 8.2 mg/dL (8.5-10.1); TOT PROT 5.8 g/dl (6.4-8.2)
[2024-11-11 08:24] LABS: MAGNESIUM 2.2 mg/dL (1.8-2.4)
[2024-11-11 10:07] LABS: ANISOCYTOSIS 0; MACROCYTOSIS 0
[2024-11-12 07:48] LABS: HEMATOCRIT 30.1 % (35.4-49); HEMOGLOBIN 8.9 GM/dL (11.7-16.9); MCHC 29.7 g/dl (32.0-35.9); MEAN CELL VOLUME 94.2 fl (80-96); PLATELET COUNT 141 10^3/uL (134-434); RBC 3.19 M/mm3 (4.00-5.60); RDW 18.2 % (11.9-15.9); RETICULOCYTES 2.14 % (0.5-1.5); WHITE BLOOD COUNT 6.8 K/mm3 (4.0-10.0)
[2024-11-12 07:53] LABS: POTASSIUM 5.1 mmol/L (3.5-5.1)
[2024-11-12 08:00] LABS: CALCIUM 8.4 mg/dL (8.5-10.1)
[2024-11-12 08:01] LABS: ALBUMIN 1.8 g/dl (3.4-5.0); BLOOD UREA NITROGEN 71.4 mg/dL (7-18); MAGNESIUM 2.1 mg/dL (1.8-2.4)
[2024-11-12 08:02] LABS: CREATININE 2.2 mg/dL (0.55-1.3)
[2024-11-12 08:03] LABS: BILIRUBIN,TOTAL 0.4 mg/dL (0.2-1); PHOSPHOROUS 4.2 mg/dL (2.5-4.9); TOT PROT 5.8 g/dl (6.4-8.2)
[2024-11-12] MEDS: methylPREDNISolone NA SUCC 40 MG/1 ML VIAL IVPUSH SCH (21:01)
[2024-11-12] MEDS: BENZOCAINE/MENTHOL 1 EACH LOZENGE MM PRN (23:22)
[2024-11-13 08:07] LABS: HEMATOCRIT 29.4 % (35.4-49); HEMOGLOBIN 8.9 GM/dL (11.7-16.9); MCH 28.1 pg (25.7-33.7); MCHC 30.3 g/dl (32.0-35.9); MEAN CELL VOLUME 92.9 fl (80-96); MEAN PLT VOLUME 9.3 fl (7.5-11.1); PLATELET COUNT 169 10^3/uL (134-434); RBC 3.17 M/mm3 (4.00-5.60); RDW 18.2 % (11.9-15.9); WHITE BLOOD COUNT 11.4 K/mm3 (4.0-10.0)
[2024-11-13 08:26] LABS: BLOOD UREA NITROGEN 68.4 mg/dL (7-18); CALCIUM 8.8 mg/dL (8.5-10.1)
[2024-11-13 08:30] LABS: CREATININE 2.1 mg/dL (0.55-1.3)
[2024-11-13 08:31] LABS: BILIRUBIN,TOTAL 0.9 mg/dL (0.2-1); TOT PROT 5.8 g/dl (6.4-8.2)
[2024-11-13] MEDS: FUROSEMIDE 40 MG/4 ML INJECTABLE VIAL IVPUSH ONE (16:57)
[2024-11-13] MEDS: predniSONE 20 MG TABLET (UD) PO SCH (21:06)
[2024-11-14] MEDS: metoPROLOL SUCCINATE 25 MG TAB.SR.24H (FP) PO SCH (14:57)
[2024-11-14] MEDS: ISOSORBIDE MONONITRATE 30 MG TAB.SR.24H (FP) PO SCH (14:57)
[2024-11-14] MEDS: AMOX TR/POT CLAV 500MG/125MG TABLETS (FP) PO SCH (17:43)
[2024-11-14 18:26] VITALS: RESP 18
[2024-11-14] MEDS ORDERED: BENZOCAINE/MENTH/CETYLPYRD CL 1 EACH LOZENGE MM PRN (18:34)
[2024-11-14] MEDS: APIXABAN 2.5 MG TABLET PO SCH (22:00)
[2024-11-15] MEDS: LEVOTHYROXINE NA 125 MCG TABLET (FP) PO SCH (06:49)
[2024-11-15 08:56] LABS: HEMOGLOBIN 8.3 GM/dL (11.7-16.9); MCHC 30.7 g/dl (32.0-35.9); MEAN CELL VOLUME 91.4 fl (80-96); MEAN PLT VOLUME 8.6 fl (7.5-11.1); PLATELET COUNT 182 10^3/uL (134-434); RBC 2.95 M/mm3 (4.00-5.60); RDW 18.4 % (11.9-15.9); WHITE BLOOD COUNT 12.4 K/mm3 (4.0-10.0)
[2024-11-15 09:17] LABS: POTASSIUM 4.6 mmol/L (3.5-5.1)
[2024-11-15 09:20] LABS: ALBUMIN 1.9 g/dl (3.4-5.0); CALCIUM 8.9 mg/dL (8.5-10.1)
[2024-11-15 09:24] LABS: CREATININE 1.4 mg/dL (0.55-1.3)
[2024-11-15 09:25] LABS: ANISOCYTOSIS 0; BILIRUBIN,TOTAL 0.8 mg/dL (0.2-1); MACROCYTOSIS 0; TOT PROT 5.4 g/dl (6.4-8.2)
[2024-11-15] MEDS: TAMSULOSIN HCL 0.4 MG CAP PO SCH (09:43)
[2024-11-15] MEDS: FLUTICASONE/UMECLIDIN/VILANTER(100-62.5-25 TRELEGY ELLIPTA) INAHLER IH SCH (09:44)
[2024-11-15] MEDS: FUROSEMIDE 20 MG TABLET (FP) PO SCH (18:16)
[2024-11-15 23:16] VITALS: BP 145/84; PULSE 62; TEMP 97.6
== END 2024-11-16 01:15 | DRG 871 ==
LOC: JER 10:39 → JERBED 14:14 → JICU 11-09 01:55 → J6W 11-14 18:58
PROVIDERS: ADMIT Internal Medicine; ATTEND Internal Medicine
DX: A41.89 Other specified sepsis (principal); J09.X1 Influenza due to identified novel influenza A virus with pneumonia; J96.21 Acute and chronic respiratory failure with hypoxia; R65.21 Severe sepsis with septic shock; I13.0 Hypertensive heart and chronic kidney disease with heart failure and stage 1 through stage 4 chronic kidney disease, or unspecified chronic kidney disease; I50.32 Chronic diastolic (congestive) heart failure; J44.1 Chronic obstructive pulmonary disease with (acute) exacerbation; E87.29 Other acidosis; I24.89 Other forms of acute ischemic heart disease; J44.0 Chronic obstructive pulmonary disease with (acute) lower respiratory infection; E88.09 Other disorders of plasma-protein metabolism, not elsewhere classified; D50.9 Iron deficiency anemia, unspecified; R50.9 Fever, unspecified; N28.1 Cyst of kidney, acquired; R79.89 Other specified abnormal findings of blood chemistry; M10.9 Gout, unspecified; N40.0 Benign prostatic hyperplasia without lower urinary tract symptoms; I48.91 Unspecified atrial fibrillation; I25.10 Atherosclerotic heart disease of native coronary artery without angina pectoris; I27.20 Pulmonary hypertension, unspecified; E03.9 Hypothyroidism, unspecified; E78.5 Hyperlipidemia, unspecified; I77.819 Aortic ectasia, unspecified site; N18.9 Chronic kidney disease, unspecified; Z95.1 Presence of aortocoronary bypass graft; Z95.0 Presence of cardiac pacemaker; Z99.81 Dependence on supplemental oxygen
CPT/HCPCS: 0241U-QW; 36415; 36600; 71045-TC-FY; 76705-TC; 76775-TC; 76856-TC; 80053; 81003; 82272; 82728; 82803; 82962; 83036; 83540; 83550; 83605; 83735; 84100; 84443; 84484; 85025; 85027; 85045; 85610; 85730; 86850; 86900; 86901; 87040; 87070; 87086; 87205; 87481; 87635; 87899; 93005; 93010; 93306-TC; 94660; 99291; G0480; J0131